=== PATIENT | male | born 1950 | race Caucasian/White ===

== ENCOUNTER → 2020-10-06 12:16 | Outpatient (CLI) | payer MEDICARE, BC, SELFPAY ==
--- NOTE | ~2020-10-06 | XR_ITS ---
XR elbow RT min 3V DATE: 10/06/2020 12:43 INDICATION: Right elbow pain TECHNIQUE: 5 views COMPARISON: None FINDINGS: Small dorsal olecranon process spur. Mild spurring of the coronoid process of the proximal ulna. No fracture or dislocation, periosteal reaction or bone destruction. No apparent joint effusion. IMPRESSION: Mild dorsal olecranon process spur Reviewed, dictated and finalized at location B.
== END ==
PROVIDERS: PCP Family Medicine; Visit Provider Nurse Practitioner
DX: M25.521 Pain in right elbow (principal); M77.8 Other enthesopathies, not elsewhere classified
CPT/HCPCS: 73080

== ENCOUNTER 2021-06-13 00:23 | Day surgery (SDC) | payer MEDICARE, BC, SELFPAY ==
[2021-06-04 14:04] VITALS: BMI 36.0
[2021-06-13 06:27] VITALS: BP 138/58; PULSE 53; RESP 20; TEMP 36.6; O2SAT 99
[2021-06-13] MEDS: LACTATED RINGERS 1,000 ML 150 ML IV CONT (06:41)
--- NOTE | 2021-06-13 06:45 | WPDANESEPPF ---
Anes - Initial Pre Proc Eval Procedure: Operation Date: 06/13/21 07:30 Proposed Procedures p Screening Colonoscopy - Dru Peterson MD Date/Time: 06/13/21 06:45 Surgeon: Dru Peterson MD Pre Op Diagnosis: neoplasm screening Patient Data Age: 70 Gender: M Height: 1.83 m Weight: 120 kg Last Vital Signs Temp 36.6 C 06/13/21 06:27 Pulse 53 L 06/13/21 06:27 Resp 20 06/13/21 06:27 BP 138/58 L 06/13/21 06:27 Pulse Ox 99 06/13/21 06:27 Allergies Allergy/AdvReac Type Severity Reaction Status Date / Time Penicillins Allergy Intermediate unknown Verified 06/13/21 06:26 clindamycin Allergy Unknown RASH AND Verified 06/13/21 06:26 ITCHING WARFARIN SODIUM Allergy Unknown COUMADIN Uncoded 06/13/21 06:26 INDUCED NECROSIS Home Medications Medication Instructions Recorded Confirmed Type acetaminophen 500 mg capsule 500 mg PO Q6H PRN 11/01/20 06/04/21 History amlodipine 5 mg tablet 5 mg PO DAILY 11/01/20 06/04/21 History aspirin 81 mg tablet,delayed 81 mg PO DAILY 11/01/20 06/04/21 History release atorvastatin 20 mg tablet 30 mg PO DAILY tablet 11/01/20 06/04/21 History blood ketone glucose monitor 11/01/20 06/04/21 History cholecalciferol (vitamin D3) 50 100 mcg PO DAILY 11/01/20 06/04/21 History mcg (2,000 unit) capsule folic acid 400 mcg tablet 0.4 mg PO DAILY 11/01/20 06/04/21 History furosemide 40 mg tablet 40 mg PO QAM 11/01/20 06/04/21 History hydralazine 100 mg tablet 100 mg PO BID 11/01/20 06/04/21 History loperamide 2 mg capsule 2 mg PO Q6H PRN 11/01/20 06/04/21 History multivitamin 1 tablet PO DAILY 11/01/20 06/04/21 History ferrous sulfate 325 mg (65 mg 325 mg PO DAILY tablet 05/03/21 06/04/21 History iron) tablet,delayed release nebivolol 20 mg tablet 20 mg PO DAILY 05/03/21 06/04/21 History Patient hx anesthesia problems: none Family hx anesthesia problems: none Results Review: All pre-operative results and documents have been reviewed as part of the pre-operative evaluation. [facility] Past Medical History Medical History Amputation toe Left middle toe 2013 Cholecystectomy planned 1998 Diabetes History of DVT (deep vein thrombosis) Hypertension Inflammation of right elbow Inflammatory monoarthritis of right elbow Kidney disease Vision changes Cataract 2012 Surgical History Surgical History History of amputation Right below knee 05/10/2010 Family History Family History Father Heart disease Mother Liver cancer Hypertension Sibling Brain cancer Hypertension Grandparent Cancer Other Diabetes mellitus Social History Social History Smoking status: Never smoker Alcohol intake: never Substance use: never Substance use type: does not use Living arrangements: alone Gender identity (if verbalized by the patient): Male Spiritual care concerns: No Anes - Eval Final PreProcedure Day of Procedure 06/13/21 06:45 Patient weight: obese Heart: regular rate and rhythm Lungs: clear to auscultation Airway: Mallampati scale class II Neurological: alert and oriented Last oral intake: >/= 8 hours ASA classification: III Emergent: no Anesthetic plan: proceed Anesthesia type and monitoring: general GIVS and standard monitoring Results Review: All pre-operative results and documents have been reviewed as part of the pre-operative evaluation. Informed Consent: The patient's anesthetic plan and its attendant risks and benefits were discussed with the patient/family/POA. Questions were solicited and answers provided to the satisfaction of the patient/family/POA.
--- NOTE | 2021-06-13 07:19 | PM.HPGS ---
History of Present Illness History of Present Illness Consent: Risks, benefits, and alternatives have been discussed and questions answered. Patient agrees to proceed with procedure. Chief complaint: neoplasm screening Narrative: Amish Richter is a 70 year old male here for first screening colonoscopy Review of Systems Constitutional: Constitutional: Denies headache(s) and Denies weakness Eyes: Eyes: Denies blurry vision ENT: Reports Normal hearing present, Denies headache(s) and Denies neck pain Cardiovascular: Cardiovascular: Denies chest pain and Denies dyspnea Respiratory: Respiratory: Denies dyspnea Gastrointestinal: Gastrointestinal: Reports no additional gastrointestinal complaints Genitourinary: Genitourinary: Denies dysuria Musculoskeletal: Musculoskeletal: Denies neck pain Integumentary/Breasts: Skin/Breast: Denies dry skin Neurologic: Reports Normal hearing present, Denies headache(s) and Denies weakness Psychiatric: Psychiatric: Denies anxiety Endocrine: Endocrine: Denies change in body appearance Hematologic/Lymphatic: Hematologic/Lymphatic: Denies easy bleeding Allergic/Immunologic: Allergic/Immunologic: Denies urticaria PMF Past Medical History Medical History Amputation toe Left middle toe 2014 Cholecystectomy planned 1998 Diabetes History of DVT (deep vein thrombosis) Hypertension Inflammation of right elbow Inflammatory monoarthritis of right elbow Kidney disease Vision changes Cataract 2012 Surgical History Surgical History History of amputation Right below knee 05/10/2010 Family History Family History Father Heart disease Mother Liver cancer Hypertension Sibling Brain cancer Hypertension Grandparent Cancer Other Diabetes mellitus Social History Social History Smoking status: Never smoker Alcohol intake: never Substance use: never Substance use type: does not use Living arrangements: alone Gender identity (if verbalized by the patient): Male Spiritual care concerns: No Meds Home Medications and Allergies Home Medications Medication Instructions Recorded Confirmed Type acetaminophen 500 mg capsule 500 mg PO Q6H PRN 11/01/20 06/04/21 History amlodipine 5 mg tablet 5 mg PO DAILY 11/01/20 06/04/21 History aspirin 81 mg tablet,delayed 81 mg PO DAILY 11/01/20 06/04/21 History release atorvastatin 20 mg tablet 30 mg PO DAILY tablet 11/01/20 06/04/21 History blood ketone glucose monitor 11/01/20 06/04/21 History cholecalciferol (vitamin D3) 50 100 mcg PO DAILY 11/01/20 06/04/21 History mcg (2,000 unit) capsule folic acid 400 mcg tablet 0.4 mg PO DAILY 11/01/20 06/04/21 History furosemide 40 mg tablet 40 mg PO QAM 11/01/20 06/04/21 History hydralazine 100 mg tablet 100 mg PO BID 11/01/20 06/04/21 History loperamide 2 mg capsule 2 mg PO Q6H PRN 11/01/20 06/04/21 History multivitamin 1 tablet PO DAILY 11/01/20 06/04/21 History ferrous sulfate 325 mg (65 mg 325 mg PO DAILY tablet 05/03/21 06/04/21 History iron) tablet,delayed release nebivolol 20 mg tablet 20 mg PO DAILY 05/03/21 06/04/21 History Allergies Allergy/AdvReac Type Severity Reaction Status Date / Time Penicillins Allergy Intermediate unknown Verified 06/13/21 06:26 clindamycin Allergy Unknown RASH AND Verified 06/13/21 06:26 ITCHING WARFARIN SODIUM Allergy Unknown COUMADIN Uncoded 06/13/21 06:26 INDUCED NECROSIS Vital Signs Vital Signs - 24 hr 06/13/21 06:27 Temperature 98 F Pulse Rate 53 L Respiratory Rate 20 Blood Pressure 138/58 L Pulse Oximetry 99 Exam Const: General: comfortable and no acute distress HENMT: General nose exam: Normal nares present Eyes: General: appearance normal, both eyes and all relat
[2021-06-13 07:39] VITALS: BP 96/50; PULSE 81; RESP 16; O2SAT 96
[2021-06-13 07:49] VITALS: BP 123/74; PULSE 80; RESP 17; O2SAT 97
[2021-06-13 07:59] VITALS: BP 134/69; PULSE 50; RESP 13; O2SAT 95
== END 2021-06-13 08:25 | disposition home or self-care (01) ==
PROVIDERS: PCP Internal Medicine; Visit Provider Internal Medicine Gastroenterology
PROC: 0DJD8ZZ Inspection of Lower Intestinal Tract, Via Natural or Artificial Opening Endoscopic (ICD-10-PCS; CPT 45378; principal; 2021-06-13 07:30)
DX: Z12.11 Encounter for screening for malignant neoplasm of colon (principal); K63.5 Polyp of colon; K64.8 Other hemorrhoids; I10 Essential (primary) hypertension; E11.9 Type 2 diabetes mellitus without complications; Z86.718 Personal history of other venous thrombosis and embolism; Z79.82 Long term (current) use of aspirin; Z89.511 Acquired absence of right leg below knee; E66.9 Obesity, unspecified; Z68.35 Body mass index [BMI] 35.0-35.9, adult
CPT/HCPCS: 45385; 88305; J2704; J7120

== ENCOUNTER 2023-01-14 10:47 | Emergency (ER) | payer MEDICARE, BC, SELFPAY ==
--- NOTE | ~2023-01-14 | XR_ITS ---
Right elbow Technique: AP, oblique, and lateral views were obtained. Clinical History: Pain Findings: There is probable mild elevation anterior fat pad, suggestive a small elbow joint effusion. No definite fracture delineated on this exam. Soft tissues are otherwise unremarkable. Impression: Probable small joint effusion, which is suspicious for occult radial head fracture. Reviewed, dictated and finalized at [facility]. Impression: Probable small joint effusion, which is suspicious for occult radial head fract ure.
[2023-01-14 10:56] VITALS: BP 138/90; PULSE 87; RESP 15; TEMP 36.9; O2SAT 99
--- NOTE | 2023-01-14 11:11 | ED.EXTPRO ---
HPI - Extremity Problem General Chief complaint: Extremity Problem,Nontraumatic Stated complaint: Elbow pain Time Seen by Provider: 01/14/23 11:05 Source: patient, RN notes reviewed and old records reviewed Mode of arrival: ambulatory Limitations: no limitations History of Present Illness HPI Narrative: 72-year-old male presents to [facility] with complaints of right elbow pain for the past 2 weeks mainly to the lateral aspect of his right elbow with some warmth to area. Patient reports that he has had pain to his right elbow previously and saw Dr Garcia in the past and states it did get better but has had increased pain lately. Patient has pain to to lateral epicondyle and some warmth noted but no acute redness. Patient is able to supinate and pronate his right arm but with some discomfort.Patient denies any injury to his right elbow, does walk with a walker had right BKA and wears a prosthesis. Patient can not take any anti-inflammatories due to kidney disease. MD Complaint: extremity pain and other (warmth to right lateral elbow) Onset (ago): week(s) (2weeks increased symptoms) Severity scale (1-10): 3 Related Data Home Medications Medication Instructions Recorded Confirmed aspirin 81 mg tablet,delayed 81 mg PO DAILY 11/01/20 01/14/23 release (Adult Aspirin Regimen) blood ketone glucose monitor 11/01/20 12/04/22 Allergies Allergy/AdvReac Type Severity Reaction Status Date / Time Penicillins Allergy Intermediate unknown Verified 01/14/23 11:07 clindamycin Allergy Unknown RASH AND Verified 01/14/23 11:07 ITCHING WARFARIN SODIUM Allergy Unknown COUMADIN Uncoded 01/14/23 11:07 INDUCED NECROSIS Review of Systems Review of Systems: CONSTITUTIONAL: Denies fever, chills, or sweats. EYES: Denies visual changes, redness, or discharge. ENT: Denies rhinorrhea, congestion, sore throat, or otalgia. CARDIOVASCULAR: Denies chest pain, palpitations, or edema. RESPIRATORY: Denies cough or dyspnea. GASTROINTESTINAL: Denies abdominal pain, nausea, vomiting, or diarrhea. GENITOURINARY: Denies dysuria or hematuria. SKIN: Denies rash or itching. MUSCULOSKELETAL: Denies back pain,positive for right elbow joint pain with some warmness to area, or myalgia. NEUROLOGIC: Denies headache, numbness, or weakness. PSYCHIATRIC: Denies anxiety or depression. All systems reviewed & are unremarkable except as noted in HPI and below PMFSH Past Medical History Medical History Amputation toe Left middle toe 2013 Cholecystectomy planned 1998 Diabetes History of DVT (deep vein thrombosis) Hypertension Inflammation of right elbow Inflammatory monoarthritis of right elbow Kidney disease Vision changes Cataract 2012 Surgical History Surgical History History of amputation Right below knee 05/10/2010 Family History Family History Father Heart disease Mother Liver cancer Hypertension Sibling Brain cancer Hypertension Grandparent Cancer Other Diabetes mellitus Social History Social History Social History: Caffeine-hot tea Smoking status: Never smoker Alcohol intake: never Substance use: never Substance use type: does not use Lack of Transportation: YES Lack of Food: Never True Current Housing: I Have Housing Concerned About Future Housing: No Difficulty Paying Gas/Electric Bills: No Difficulty Paying for Meds: No Currently Unemployed: No Education: Bachelor's Degree Difficulty w/ Childcare or Family Care: No Living arrangements: alone Gender identity (if verbalized by the patient): Male Spiritual care concerns: No Comments At time of signature, agree with nursing past medical, surgical, social and family history. There is no relevant family history pe
--- NOTE | 2023-01-14 12:06 | PC.NURSE ---
1150- [employer] talking to Dr Garcia, - states that since nothing is emergent they didnt have availability for this patient.
== END 2023-01-14 12:21 | disposition home or self-care (01) ==
PROVIDERS: Emergency Provider Registered Nurse; PCP Internal Medicine
DX: M25.421 Effusion, right elbow (principal); E11.9 Type 2 diabetes mellitus without complications; I10 Essential (primary) hypertension; Z89.511 Acquired absence of right leg below knee; Z86.718 Personal history of other venous thrombosis and embolism; Z89.422 Acquired absence of other left toe(s); Z79.82 Long term (current) use of aspirin
CPT/HCPCS: 73080; 99213; A4565; G0463

== ENCOUNTER 2023-02-05 13:30 | Outpatient (RCR) | payer MEDICARE, BC, SELFPAY ==
--- NOTE | 2023-01-29 11:52 | OTOPEVAL1 ---
Assessment and note entered by Lior Quiñones, DESIRE/Alexa, CHT Evaluation Information Diagnosis OA right elbow Subjective Information Patient is right handed. He reports pain and stiffness in the right elbow. He did receive an injection to the elbow ~2 weeks ago and completed a round of Prednisone. Since these treatments his pain is significantly better and he has been able to use the right UE to wash his hair. Previously it was too painful to bend to reach his face/hair for grooming tasks. He is fearful that the pain will come back now that he's done with the medication. Reported Pain Level Pain Score 0: Self Report Assessment OT Clinical Summary Patient referred to outpatient OT with dx of right elbow OA. He presents today with no pain following cortisone and prednisone tx. Residual stiffness and weakness. Skilled OT indicated for HEP instruction and progression as well as joint protection education to facilitate optimal pain- free functioning of his right, dominant UE. Plan of Care Interventions Therapeutic Exercise,Manual Therapy,Therapeutic Activities,Hot Pack/Cold Pack OT Services Indicated Yes Treatment Frequency and 1x/week for 4 weeks Duration These treatments will address the objective and functional deficits as defined above. The patient will be advanced safely and appropriately in order for the patient to progress towards his/her prior level of function. Additional exercises will be introduced and as well as a comprehensive home exercise program upon discharge, if needed, ?to ensure carryover of functional gains achieved in the clinic. This treatment plan has been reviewed and agreement upon by the patient.
--- NOTE | 2023-01-29 11:57 | OPREHPOC ---
Outpatient Therapy Plan of Care This is a Multidisciplinary Plan of Care that may contain components documented by all disciplines (PT, OT, and ST.) OT Problem 1 OT Problem #1 Knowledge Deficit OT Goal 1 Goal 1. Patient to be independent with instructed materials. Target Visit 5 OT Problem 2 OT Problem #2 Impaired Strength OT Goal 1 Goal 1. Patient to be able to complete elbow/forearm strengthening in all planes with 2 lb. free weight x15 reps without pain. Target Visit 5
--- NOTE | 2023-02-19 09:15 | OTOPDC ---
Assessment and note entered by Lior Quiñones, OTR/Alexa, CHT Discharge Notification 02/19/23 OT Clinical Summary Patient called and cancelled OT appts stating he was doing well and ready to be discharged. He attended the initial evaluation and 1 follow up visit and was instructed in HEP. Discharging OT services at this time. Thank you for this referral.
== END 2023-02-19 11:40 | disposition home or self-care (01) ==
LOC: ANHOT 13:30
PROVIDERS: PCP Internal Medicine; Visit Provider Orthopaedic Surgery
DX: M19.021 Primary osteoarthritis, right elbow (principal); M25.521 Pain in right elbow
CPT/HCPCS: 97110; 97165

== ENCOUNTER 2024-01-20 11:07 | Inpatient (IN) | payer MEDICARE, BC, SELFPAY ==
[2024-01-20] VITALS (8 sets, daily range): BP systolic 104–139; BP diastolic 46–63; PULSE 55–68; RESP 16–19; TEMP 36.5–36.8; O2SAT 95–99; BMI 33.3; BMI 33.6
--- NOTE | ~2024-01-20 | CT_ITS ---
EXAMINATION: CT pelvis wo con, CT LE LT wo con DATE: 01/20/2024 18:15 (accession [id number]), 01/20/2024 18:16 (accession [id number]) INDICATION: Scrotal infection, lower extremity edema/erythema TECHNIQUE: Computed tomography (CT) of the pelvis and left lower extremity was performed without intr avenous contrast. Automated exposure control and iterative reconstruction technique were employed. Th e dose-length product was 1356.06 (accession [id number]), 2078.27 (accession [id number]) mGy- cm. COMPARISON: Ultrasound scrotum, same date; Ultrasound left lower extremity venous Doppler, same date; CT abdomen pelvis 02/25/2012 FINDINGS: Atherosclerotic arterial calcifications. Normal urinary bladder. Mild prostatomegaly. Subcu taneous stranding over the suprapubic fat. Soft tissue edema involving the penis with marked edema of the scrotum. Moderate right and small left hydroceles. Degenerative changes in the lower lumbar spin e and bilateral hips. Degenerative changes in the knee and ankle. Status post third toe amputation. D iffuse subcutaneous stranding and edema of the left lower extremity, most pronounced over the dorsum of the foot and the lateral thigh and lower leg. No definite focal fluid collection, although this de termination is limited without contrast. Moderate volume knee joint effusion. IMPRESSION: Marked scrotal edema. Diffuse left lower extremity subcutaneous stranding and fluid, most pronounced over the lateral thigh, lateral lower leg, and dorsum of the foot, may represent edema or cellulitis. Reviewed, dictated and finalized at location K. IMPRESSION: Marked scrotal edema. Diffuse left lower extremity subcutaneous stranding and f luid, most pronounced over the lateral thigh, lateral lower leg, and dorsum of the foot, may represent edema or cellulitis.
--- NOTE | ~2024-01-20 | US_ITS ---
EXAMINATION: US venous doppler [facility] DATE: 01/20/2024 17:16 INDICATION: Left lower limb pain and swelling TECHNIQUE: Grayscale ultrasound images without and with compression and Doppler ultrasound images of the left lower extremity veins were obtained. COMPARISON: None. FINDINGS: The visualized portions of left common femoral vein, profunda (deep) femoral vein, femoral vein, popl iteal vein, peroneal veins, posterior tibial veins, gastrocnemius vein and greater saphenous vein out flow are patent. IMPRESSION: 1. No deep venous thrombosis in the left lower limb. Reviewed, dictated and finalized at location A.
--- NOTE | ~2024-01-20 | CT_ITS ---
EXAMINATION: CT LE LT wo con DATE: 01/24/2024 18:10 INDICATION: Left lower limb cellulitis with edema and pain. Assess for abscess. TECHNIQUE: High resolution computed tomography (CT) of the left lower limb from the mid thigh through the foot was performed without intravenous contrast. Additional sagittal and coronal reconstructions were performed. Automated exposure control and iterative reconstruction technique were employed. The dose-length product was 1535.46 mGy-cm. COMPARISON: 01/20/2024 FINDINGS: Again seen is subcutaneous stranding beginning at the posterior and lateral aspect of the distal thig h and extending distally becoming more dense along the lateral aspect of the left calf over the dorsu m of the foot. No evident soft tissue gas or abscess. Unchanged moderate-sized left knee joint effusi on. There is diffuse fatty muscular atrophy, mild at the left thigh and visualized portion of the rig ht thigh and of moderate severity at the left calf. This only noted right [id number] amputation. Mild polyarticular osteoarthritis at the left foot and ankle. No erosions to suggest inflammatory art hritis or osteomyelitis. Left peroneus longus and brevis tendons which suggests possibility of a mani talline deposition disease such as gout. Moderate-sized Achilles and plantar calcaneal spurs. IMPRESSION: 1. No significant interval change in soft tissue swelling with subcutaneous stranding most prominent along the lateral distal left thigh, calf and extending over the dorsum of the foot. No evident absce ss or osteomyelitis. 2. Nonspecific moderate-sized left knee joint effusion. 3. Dystrophic calcifications along the left peroneus longus and brevis tendons suggesting possible cr ystalline deposition diseases such as gout. Reviewed, dictated and finalized at location A. 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 No significant interval change in soft tissue swelling with subcutaneous str anding most prominent along the lateral distal left thigh, calf and extending o alejandro the dorsum of the foot. No evident abscess or osteomyelitis. 2. Nonspecific moderate-sized left knee joint effusion. 3. Dystrophic calcifications along the left peroneus longus and brevis tendons suggesting possible crystalline deposition diseases such as gout.
--- NOTE | ~2024-01-20 | US_ITS ---
EXAMINATION: US arterial ankle brachial ind DATE: 01/24/2024 18:24 INDICATION: Lower limb pain and swelling TECHNIQUE: Segmental pressures and plethysmographic and Doppler waveforms of the brachial and lower e xtremity arteries were obtained. COMPARISON: None. FINDINGS: Right and left brachial artery pressures of 146 mm Hg and 139 mm Hg, respectively, are concordant (no rmal difference <= 30 mmHg). The left ankle-brachial index (KEISHA) is 1.28 (normal >= 0.9-1.0). The right great toe-brachial index ( TBI) is 0.90 (normal >= 0.65). Arterial Doppler waveforms are biphasic with brisk systolic upstrokes at both right posterior tibial and dorsalis pedis arteries. The patient is status post right cnaiz-swi-[id number] amputation. IMPRESSION: 1. No significant arterial occlusive disease to the left lower limb with normal left KEISHA and TBI. Reviewed, dictated and finalized at location A. [employer]STATE LEASING [employer]
--- NOTE | ~2024-01-20 | XR_ITS ---
EXAMINATION: XR ankle LT min 3V DATE: 01/20/2024 14:24 INDICATION: Left lower limb swelling. TECHNIQUE: 4 views of left ankle were obtained. COMPARISON: None. FINDINGS: Alignment is normal. No fracture. The ankle joint space is normal. There is mild midfoot os teoarthritis. There is ankle soft tissue swelling. IMPRESSION: 1. Mild midfoot osteoarthritis. Reviewed, dictated and finalized at location B.
--- NOTE | ~2024-01-20 | US_ITS ---
EXAMINATION: US scrotum doppler DATE: 01/20/2024 17:16 INDICATION: Scrotal swelling TECHNIQUE: Testicular sonogram utilizing grayscale and Doppler COMPARISON: None. FINDINGS: The right testis measures 4.0 x 3.1 x 3.2 cm. The left testis measures 3.4 x 2.9 x 2.4 cm. Symmetric normal grayscale appearance to both testes. There is normal vascular flow to both testes. The right e pididymis is normal with normal vascular flow. The left epididymis is normal with normal vascular macey w. Minimally left and moderate-sized right hydroceles. No varicocele. There is prominent diffuse scro elias edema IMPRESSION: 1. Diffuse scrotal edema and moderate-sized right and minimal left hydroceles. Normal testes and epi didymides. Reviewed, dictated and finalized at location A. IMPRESSION: 1. Diffuse scrotal edema and moderate-sized right and minimal left hydroceles. Normal testes and epididymides.
--- NOTE | ~2024-01-20 | XR_ITS ---
EXAMINATION: XR foot LT min 3V DATE: 01/20/2024 14:24 INDICATION: Left lower limb swelling. TECHNIQUE: 3 views of left foot were obtained. COMPARISON: None. FINDINGS: There is amputation a left third metatarsophalangeal joint. No fracture. There is mild oste oarthritis of first metatarsophalangeal joint and some of the midfoot joints. There are enthesophytes at the posterior and plantar aspects of calcaneal tuberosity. There is soft tissue swelling of the f oot. IMPRESSION: 1. Mild polyarticular osteoarthritis. Reviewed, dictated and finalized at location B.
--- NOTE | 2024-01-20 13:51 | ECG_ITS ---
Test Date: 2024-01-20 14:08:22 Measurements Intervals [place] Rate: 64 P: 115 LA: 206 QRS: -58 QRSD: 166 T: 104 QT: 449 QTc: 464 Interpretive Statements SINUS RHYTHM MARKED LEFT AXIS DEVIATION [QRS AXIS < -30] LEFT BUNDLE BRANCH BLOCK [120+ ms QRS DURATION, 80+ ms Q/S IN V1/V2, 85+ ms R IN I/aVL/V5/V6] No previous ECG available for comparison Electronically Signed On 01-20-2024 14:26:17 CDT by Brea Diop M.D.
--- NOTE | 2024-01-20 13:54 | ED.GENADULT ---
HPI - General Adult General Chief complaint: Recheck/Abnormal Lab/Rx <Arlette Kwan APRN - Last Filed: 01/20/24 13:56> Stated complaint: r/o dvt, scrotal swelling <Arlette Kwan APRN - Last Filed: 01/20/24 13:56> Time Seen by Provider: 01/20/24 13:50 <Arlette Kwan APRN - Last Filed: 01/20/24 13:56> Focused HPI: Patient is a 73-year-old male who presents to the ER with 3-4 days of left lower extremity swelling and pain, along with scrotal swelling for 3 days. 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 He reports his LLE pain increases with walking and is warm to the touch. Pt reports he has minimal pain, but large amount of swelling to his scrotum for 3 days. He has no concern for STDs And denies other urinary symptoms. GENERAL: Well-appearing, well-nourished, and in no acute distress. HEAD: Normocephalic, atraumatic. CHEST: Clear to auscultation. ?No respiratory distress. HEART: Regular rate and rhythm.? NEURO: ?Alert and oriented x3. Patient screened in triage and initial orders placed.? ?Additional care and disposition to be based upon?diagnostic testing and treatment. <Arlette Kwan APRN - Last Filed: 01/20/24 13:56> Related Data Home medications: Home Medications Medication Instructions Recorded Confirmed aspirin 81 mg tablet,delayed 81 mg PO DAILY 11/01/20 01/20/24 release (Adult Aspirin Regimen) blood ketone glucose monitor 11/01/20 01/20/24 cholecalciferol (vitamin D3) 50 50 mcg PO DAILY 01/15/23 01/20/24 mcg (2,000 unit) capsule ferrous sulfate 325 mg (65 mg 325 mg PO BID 02/12/23 01/20/24 iron) tablet [id number] 300 mcg-K 60 1 tablet PO DAILY 02/12/23 01/20/24 mcg-lycop 600 mcg-lutein 300 mcg tablet (Centrum Silver Men) amlodipine 5 mg tablet 5 mg PO DAILY 01/20/24 01/20/24 hydralazine 100 mg tablet 100 mg PO DAILY 01/20/24 01/20/24 hydrochlorothiazide 25 mg tablet 25 mg PO DAILY 01/20/24 01/20/24 <Arlette Kwan APRN - Last Filed: 01/20/24 13:56> Allergies/adverse reactions: Allergies Allergy/AdvReac Type Severity Reaction Status Date / Time Penicillins Allergy Intermediate unknown Verified 01/20/24 21:16 clindamycin Allergy Unknown RASH AND Verified 01/20/24 21:16 ITCHING warfarin [From Coumadin] Allergy Unknown Unknown Verified 01/20/24 21:16 <Arlette Kwan APRN - Last Filed: 01/20/24 13:56> Review of Systems Review of Systems: CONSTITUTIONAL: Denies fever CARDIOVASCULAR: Denies chest pain RESPIRATORY: Denies dyspnea. GASTROINTESTINAL: Reports diarrhea. Denies abdominal pain, nausea, vomiting GENITOURINARY: Denies dysuria or hematuria. SKIN: Reports redness and swelling <Kelsy Munguia PA-C - Last Filed: 01/20/24 20:50> All systems reviewed & are unremarkable except as noted in HPI and below <Kelsy Munguia PA-C - Last Filed: 01/20/24 20:50> [facility] Past Medical History Medical History: Medical History Amputation toe Left middle toe 2013 Cholecystectomy planned 1998 Diabetes History of DVT (deep vein thrombosis) Hypertension Inflammation of right elbow Inflammatory monoarthritis of right elbow Kidney disease Vision changes Cataract 2012 <Arlette Kwan APRN - Last Filed: 01/20/24 13:56> Surgical History Surgical History: Surgical History History of amputation Right below knee 05/10/2010 History of cholecystectomy <Arlette Kwan APRN - Last Filed: 01/20/24 13:56> Family History Family History: Family History Father Heart disease Mother Liver cancer Hypertension Sibling Brain cancer Hypertension Grandparent Cancer Other Diabetes mellitus <Arlette Kwan APRN - Last Filed: 01/20/24 13:56> Social History Social History: Social History Social History: Caffeine-hot tea Smoking status: Never smoker Alcohol intake: never Substance use: never Substance use type: does not use Do You Feel Safe in your Home?: Yes Lack of Transportation: No Lack of Food: Never True Current Housing: I Have Housing Concerned About Future Housing: No Difficulty Paying Gas/Electric Bills: No Difficulty Paying for Meds: No Currently Unemployed: No Education: Bachelor's Degree Difficulty w/ Childcare or Family Care: No Living arrangements: alone Occupation/Education: retired Gender identity (if verbalized by the patient): Male Spiritual care concerns: No <Arlette Kwan APRN - Last Filed: 01/20/24 13:56> Exam Narrative: GENERAL: Ill-appearing, well-nourished, and in no acute distress. HEAD: Normocephalic, atraumatic. EYES: EOMI. ENT: Nares clear, no rhinorrhea or epistaxis. Mucous membranes moist. Oropharynx without tonsillar hypertrophy exudate or other lesions. NECK: Supple. No JVD CHEST: Clear to auscultation. No respiratory distress. No wheezes rales or rhonchi HEART: Regular rate and rhythm. No murmur heard. Normal peripheral pulses. ABDOMEN: Soft, nontender, nondistended, normal active bowel sounds. EXTREMITIES: Normal range of motion. Edema about the left lower extremity with overlying redness SKIN: Warm, dry, no rash. NEURO: No focal deficits. Alert and oriented x3. PSYCH: Normal mood and affect MALE GENITAL: Redness and swelling of the scrotum, no other abnormal skin discoloration <Kelsy Munguia PA-C - Last Filed: 01/20/24 20:50> Course Course Emergency Course: Patient updated on his workup and recommendation for admission <Kelsy Munguia PA-C - Last Filed: 01/20/24 20:50> TRUCK DRIVER HEAVY/PA Physician Supervision For this patient encounter, I reviewed the TRUCK DRIVER HEAVY or PA documentation, treatment plan, and medical decision making and/or I had [id number] time with this patient. I performed all aspects of the MDM as documented. <Angelina Rizvi MD - Last Filed: 01/20/24 21:52> Consultations Consultation #1: Spoke with hospitalist about patient and workup who accepts admission <Kelsy Munguia PA-C - Last Filed: 01/20/24 20:50> Date: 01/20/24 <Kelsy Munguia PA-C - Last Filed: 01/20/24 20:50> Vital Signs Vital signs: Vital Signs Temperature 97.7 F 01/20/24 11:35 Pulse Rate 68 01/20/24 11:35 Respiratory Rate 16 01/20/24 11:35 Blood Pressure 120/63 01/20/24 11:35 Pulse Oximetry 99 01/20/24 11:35 Oxygen Delivery Room Air 01/20/24 11:35 Temperature 98.3 F 01/20/24 20:40 Pulse Rate 62 01/20/24 20:40 Respiratory Rate 18 01/20/24 20:40 Blood Pressure 139/54 L 01/20/24 20:40 Pulse Oximetry 99 01/20/24 20:40 Oxygen Delivery Room Air 01/20/24 11:35 <Arlette Kwan, BODY DESIGN CHECKER - Last Filed: 01/20/24 13:56> Vital Signs Temperature 97.7 F 01/20/24 11:35 Pulse Rate 68 01/20/24 11:35 Respiratory Rate 16 01/20/24 11:35 Blood Pressure 120/63 01/20/24 11:35 Pulse Oximetry 99 01/20/24 11:35 Oxygen Delivery Room Air 01/20/24 11:35 Temperature 98.3 F 01/20/24 20:40 Pulse Rate 62 01/20/24 20:40 Respiratory Rate 18 01/20/24 20:40 Blood Pressure 139/54 L 01/20/24 20:40 Pulse Oximetry 99 01/20/24 20:40 Oxygen Delivery Room Air 01/20/24 11:35 <Kelsy Munguia PA-C - Last Filed: 01/20/24 20:50> Vital Signs Temperature 97.7 F 01/20/24 11:35 Pulse Rate 68 01/20/24 11:35 Respiratory Rate 16 01/20/24 11:35 Blood Pressure 120/63 01/20/24 11:35 Pulse Oximetry 99 01/20/24 11:35 Oxygen Delivery Room Air 01/20/24 11:35 Temperature 98.3 F 01/20/24 20:40 Pulse Rate 62 01/20/24 20:40 Respiratory Rate 18 01/20/24 20:40 Blood Pressure 139/54 L 01/20/24 20:40 Pulse Oximetry 99 01/20/24 20:40 Oxygen Delivery Room Air 01/20/24 11:35 <Angelina Rizvi MD - Last Filed: 01/20/24 21:52> Medical Decision Making MDM Narrative Medical decision making narrative: Patient presents to the emergency department for swelling of the left lower extremity as well as the scrotum. He is afebrile and nontoxic appearing. His vitals are stable. CBC with leukocytosis to 24.1. Hemoglobin is 10.9. Metabolic panel with evidence of acute on chronic kidney injury. Baseline troponin elevated at 0.046, patient does not have any active chest pain or shortness of breath, likely due to acute infectious illness. Blood cultures drawn patient started on IV antibiotics. CT lower extremity shows findings of cellulitis. Left lower extremity venous Doppler without evidence of DVT. Scrotal ultrasound shows diffuse scrotal edema and moderate size right and minimal left hydroceles. Patient updated on his workup and recommendation for admission. Spoke with hospitalist about patient and workup who accepts admission <Kelsy Munguia PA-C - Last Filed: 01/20/24 20:50> Differential Diagnosis Differential Diagnosis: Cellulitis, abscess, sepsis, yeast infection <Kelsy Munguia PA-C - Last Filed: 01/20/24 20:50> Medical Records Medical records reviewed: Yes I reviewed the external patient's medical records. <Angelina Rizvi MD - Last Filed: 01/20/24 21:52> Vital Signs Vital Signs: Vital Signs Temperature 97.7 F 01/20/24 11:35 Pulse Rate 68 01/20/24 11:35 Respiratory Rate 16 01/20/24 11:35 Blood Pressure 120/63 01/20/24 11:35 Pulse Oximetry 99 01/20/24 11:35 Oxygen Delivery Room Air 01/20/24 11:35 Temperature 98.3 F 01/20/24 20:40 Pulse Rate 62 01/20/24 20:40 Respiratory Rate 18 01/20/24 20:40 Blood Pressure 139/54 L 01/20/24 20:40 Pulse Oximetry 99 01/20/24 20:40 Oxygen Delivery Room Air 01/20/24 11:35 <Arlette Kwan APRN - Last Filed: 01/20/24 13:56> Vital Signs Temperature 97.7 F 01/20/24 11:35 Pulse Rate 68 01/20/24 11:35 Respiratory Rate 16 01/20/24 11:35 Blood Pressure 120/63 01/20/24 11:35 Pulse Oximetry 99 01/20/24 11:35 Oxygen Delivery Room Air 01/20/24 11:35 Temperature 98.3 F 01/20/24 20:40 Pulse Rate 62 01/20/24 20:40 Respiratory Rate 18 01/20/24 20:40 Blood Pressure 139/54 L 01/20/24 20:40 Pulse Oximetry 99 01/20/24 20:40 Oxygen Delivery Room Air 01/20/24 11:35 <Kelsy Munguia PA-C - Last Filed: 01/20/24 20:50> Vital Signs Temperature 97.7 F 01/20/24 11:35 Pulse Rate 68 01/20/24 11:35 Respiratory Rate 16 01/20/24 11:35 Blood Pressure 120/63 01/20/24 11:35 Pulse Oximetry 99 01/20/24 11:35 Oxygen Delivery Room Air 01/20/24 11:35 Temperature 98.3 F 01/20/24 20:40 Pulse Rate 62 01/20/24 20:40 Respiratory Rate 18 01/20/24 20:40 Blood Pressure 139/54 L 01/20/24 20:40 Pulse Oximetry 99 01/20/24 20:40 Oxygen Delivery Room Air 01/20/24 11:35 <Angelina Rizvi MD - Last Filed: 01/20/24 21:52> Lab Data Lab results reviewed: Yes I reviewed the patient's lab results. <Kelsy Munguia PA-C - Last Filed: 01/20/24 20:50> Result diagrams: 01/20/24 14:04 01/20/24 14:04 <Arlette Kwan APRN - Last Filed: 01/20/24 13:56> Labs: Lab Results 01/20/24 01/20/24 Range/Units 14:04 17:11 WBC 24.1 H (4.5-10.0) K/mm3 RBC 3.78 L (4.6-6.20) M/mm3 Hgb 10.9 L (14.0-18.0) g/dL Hct 34.2 L (42.0-52.0) % MCV 90.5 (80-100) fl MCH 28.8 (26-34) pg MCHC 31.9 L (32-36) g/dl RDW 14.1 (11.5-14.5) % Plt Count 280 (150-375) k/mm3 MPV 9.0 (7.4-10.4) fl Immature Gran % (Auto) 1.0 H (0-0.5) % Neut % (Auto) 90.3 H (45.5-73.1) % Lymph % (Auto) 2.6 L (18.3-44.2) % [place] % (Auto) 5.9 (2.6-8.5) % Eos % (Auto) 0.0 (0-4.4) % Baso % (Auto) 0.2 (0.2-1.2) % Lymph # (Auto) 0.63 L (0.9-3.2) K/mm3 [place] # (Auto) 1.4 H (0.1-0.6) K/mm3 Eos # (Auto) 0.0 (0-0.3) K/mm3 Baso # (Auto) 0.1 (0.0-0.1) K/mm3 Abs Immat Gran (auto) 0.25 H (0.00-0.031) K/mm3 Absolute Neuts (auto) 21.7 H (1.3-6.7) K/mm3 Absolute Nucleated RBC 0.000 (0.0-0.012) K/mm3 Nucleated RBC % 0.0 (0.0-0.2) % ESR 133 H (0-20) mm/hr PT 16.7 H (11.1-14.7) Seconds INR 1.3 APTT 62.2 H (22.3-36.8) Seconds Sodium 138 (137-145) mmol/L Potassium 3.3 L (3.4-5.0) mmol/L Chloride 101 (98-107) mmol/L Carbon Dioxide 21 L (22-30) mmol/L Anion Gap 16 H (4-12) mmol/L BUN 81 H (9-20) mg/dL Creatinine 3.40 H (0.7-1.3) mg/dL Estim Creat Clear Calc 24 ml/min Estimated GFR 18 L (59 - ) Glucose 142 H (65-110) mg/dL Hemoglobin A1c 6.8 H (<5.7) % Lactic Acid 1.5 (0.7-2.0) mmol/L Calcium 9.9 (8.4-10.2) mg/dL Magnesium 2.3 (1.6-2.3) mg/dL Total Bilirubin 0.5 (0.2-1.3) mg/dL AST 30 (17-59) U/L ALT 27 (6-50) U/L Alkaline Phosphatase 97 (38-126) U/L Troponin I 0.046 H* 0.043 H* (0.000-0.034) ng/mL C-Reactive Protein 32.6 H (<1.0) mg/dL Total Protein 8.0 (6.3-8.2) g/dL Albumin 4.2 (3.5-5.1) g/dL <Arlette Kwan, BODY DESIGN CHECKER - Last Filed: 01/20/24 13:56> Lab Results 01/20/24 01/20/24 Range/Units 14:04 17:11 WBC 24.1 H (4.5-10.0) K/mm3 RBC 3.78 L (4.6-6.20) M/mm3 Hgb 10.9 L (14.0-18.0) g/dL Hct 34.2 L (42.0-52.0) % MCV 90.5 (80-100) fl MCH 28.8 (26-34) pg MCHC 31.9 L (32-36) g/dl RDW 14.1 (11.5-14.5) % Plt Count 280 (150-375) k/mm3 MPV 9.0 (7.4-10.4) fl Immature Gran % (Auto) 1.0 H (0-0.5) % Neut % (Auto) 90.3 H (45.5-73.1) % Lymph % (Auto) 2.6 L (18.3-44.2) % [place] % (Auto) 5.9 (2.6-8.5) % Eos % (Auto) 0.0 (0-4.4) % Baso % (Auto) 0.2 (0.2-1.2) % Lymph # (Auto) 0.63 L (0.9-3.2) K/mm3 [place] # (Auto) 1.4 H (0.1-0.6) K/mm3 Eos # (Auto) 0.0 (0-0.3) K/mm3 Baso # (Auto) 0.1 (0.0-0.1) K/mm3 Abs Immat Gran (auto) 0.25 H (0.00-0.031) K/mm3 Absolute Neuts (auto) 21.7 H (1.3-6.7) K/mm3 Absolute Nucleated RBC 0.000 (0.0-0.012) K/mm3 Nucleated RBC % 0.0 (0.0-0.2) % ESR 133 H (0-20) mm/hr PT 16.7 H (11.1-14.7) Seconds INR 1.3 APTT 62.2 H (22.3-36.8) Seconds Sodium 138 (137-145) mmol/L Potassium 3.3 L (3.4-5.0) mmol/L Chloride 101 (98-107) mmol/L Carbon Dioxide 21 L (22-30) mmol/L Anion Gap 16 H (4-12) mmol/L BUN 81 H (9-20) mg/dL Creatinine 3.40 H (0.7-1.3) mg/dL Estim Creat Clear Calc 24 ml/min Estimated GFR 18 L (59 - ) Glucose 142 H (65-110) mg/dL Hemoglobin A1c 6.8 H (<5.7) % Lactic Acid 1.5 (0.7-2.0) mmol/L Calcium 9.9 (8.4-10.2) mg/dL Magnesium 2.3 (1.6-2.3) mg/dL Total Bilirubin 0.5 (0.2-1.3) mg/dL AST 30 (17-59) U/L ALT 27 (6-50) U/L Alkaline Phosphatase 97 (38-126) U/L Troponin I 0.046 H* 0.043 H* (0.000-0.034) ng/mL C-Reactive Protein 32.6 H (<1.0) mg/dL Total Protein 8.0 (6.3-8.2) g/dL Albumin 4.2 (3.5-5.1) g/dL <Kelsy Munguia PA-C - Last Filed: 01/20/24 20:50> Lab Results 01/20/24 01/20/24 Range/Units 14:04 17:11 WBC 24.1 H (4.5-10.0) K/mm3 RBC 3.78 L (4.6-6.20) M/mm3 Hgb 10.9 L (14.0-18.0) g/dL Hct 34.2 L (42.0-52.0) % MCV 90.5 (80-100) fl MCH 28.8 (26-34) pg MCHC 31.9 L (32-36) g/dl RDW 14.1 (11.5-14.5) % Plt Count 280 (150-375) k/mm3 MPV 9.0 (7.4-10.4) fl Immature Gran % (Auto) 1.0 H (0-0.5) % Neut % (Auto) 90.3 H (45.5-73.1) % Lymph % (Auto) 2.6 L (18.3-44.2) % [place] % (Auto) 5.9 (2.6-8.5) % Eos % (Auto) 0.0 (0-4.4) % Baso % (Auto) 0.2 (0.2-1.2) % Lymph # (Auto) 0.63 L (0.9-3.2) K/mm3 [place] # (Auto) 1.4 H (0.1-0.6) K/mm3 Eos # (Auto) 0.0 (0-0.3) K/mm3 Baso # (Auto) 0.1 (0.0-0.1) K/mm3 Abs Immat Gran (auto) 0.25 H (0.00-0.031) K/mm3 Absolute Neuts (auto) 21.7 H (1.3-6.7) K/mm3 Absolute Nucleated RBC 0.000 (0.0-0.012) K/mm3 Nucleated RBC % 0.0 (0.0-0.2) % ESR 133 H (0-20) mm/hr PT 16.7 H (11.1-14.7) Seconds INR 1.3 APTT 62.2 H (22.3-36.8) Seconds Sodium 138 (137-145) mmol/L Potassium 3.3 L (3.4-5.0) mmol/L Chloride 101 (98-107) mmol/L Carbon Dioxide 21 L (22-30) mmol/L Anion Gap 16 H (4-12) mmol/L BUN 81 H (9-20) mg/dL Creatinine 3.40 H (0.7-1.3) mg/dL Estim Creat Clear Calc 24 ml/min Estimated GFR 18 L (59 - ) Glucose 142 H (65-110) mg/dL Hemoglobin A1c 6.8 H (<5.7) % Lactic Acid 1.5 (0.7-2.0) mmol/L Calcium 9.9 (8.4-10.2) mg/dL Magnesium 2.3 (1.6-2.3) mg/dL Total Bilirubin 0.5 (0.2-1.3) mg/dL AST 30 (17-59) U/L ALT 27 (6-50) U/L Alkaline Phosphatase 97 (38-126) U/L Troponin I 0.046 H* 0.043 H* (0.000-0.034) ng/mL C-Reactive Protein 32.6 H (<1.0) mg/dL Total Protein 8.0 (6.3-8.2) g/dL Albumin 4.2 (3.5-5.1) g/dL <Angelina Rizvi MD - Last Filed: 01/20/24 21:52> Imaging Data Radiologist's impression: ITS Impressions Ankle X-Ray 01/20/24 14:29 IMPRESSION: 1. Mild midfoot osteoarthritis. Foot X-Ray 01/20/24 14:29 IMPRESSION: 1. Mild polyarticular osteoarthritis. Venous Doppler Study 01/20/24 17:19 IMPRESSION: 1. No deep venous thrombosis in the left lower limb. Scrotum Ultrasound 01/20/24 17:21 IMPRESSION: 1. Diffuse scrotal edema and moderate-sized right and minimal left hydroceles. Normal testes and epididymides. Lower Extremity CT 01/20/24 18:18 IMPRESSION: Marked scrotal edema. Diffuse left lower extremity subcutaneous stranding and fluid, most pronounced over the lateral thigh, lateral lower leg, and dorsum of the foot, may represent edema or cellulitis. Pelvis CT 01/20/24 18:18 IMPRESSION: Marked scrotal edema. Diffuse left lower extremity subcutaneous stranding and fluid, most pronounced over the lateral thigh, lateral lower leg, and dorsum of the foot, may represent edema or cellulitis. <Kelsy Munguia PA-C - Last Filed: 01/20/24 20:50> ECG Data EKG #1: ECG completion date: 01/20/24 <PANDA Silva Last Filed: 01/20/24 20:50> EKG Interpretation: normal rate, sinus rhythm, LBBB and normal QT <Kelsy Munguia PA-C - Last Filed: 01/20/24 20:50> Critical Care Time Critical Care Time Critical Care Time: Yes <PANDA Silva Last Filed: 01/20/24 20:50> Total Critical Care Time: 35 <Kelsy Munguia PA-C - Last Filed: 01/20/24 20:50> Discharge Plan Discharge Clinical Impression: Cellulitis, scrotum, Acute kidney injury superimposed on CKD, Intertrigo Cellulitis Qualifiers: Site of cellulitis: extremity Site of cellulitis of extremity: lower extremity Laterality: left Qualified Code(s): L03.116 - Cellulitis of left lower limb <Arlette Kwan APRN - Last Filed: 01/20/24 13:56> Patient Disposition: Acute Care Hospital <Arlette Kwan APRN - Last Filed: 01/20/24 13:56> Condition: Serious <Arlette Kwan APRN - Last Filed: 01/20/24 13:56>
[2024-01-20 14:17] LABS: Basophils Absolute Auto 0.1 K/mm3 (0.0-0.1); Basophils Percent Auto 0.2 % (0.2-1.2); Hematocrit 34.2 % (42.0-52.0); Hemoglobin 10.9 g/dL (14.0-18.0); Immature Granulocyte Absolute 0.25 K/mm3 (0.00-0.031); Lymphocytes Absolute Auto 0.63 K/mm3 (0.9-3.2); Lymphocytes Percent Auto 2.6 % (18.3-44.2); Mean Corpuscular HGB Conc 31.9 g/dl (32-36); Mean Corpuscular Hemoglobin 28.8 pg (26-34); Mean Corpuscular Volume 90.5 fl (80-100); Monocytes Absolute Auto 1.4 K/mm3 (0.1-0.6); Monocytes Percent Auto 5.9 % (2.6-8.5); Neutrophils Absolute Auto 21.7 K/mm3 (1.3-6.7); Neutrophils Percent Auto 90.3 % (45.5-73.1); Platelet Count Result 280 k/mm3 (150-375); Red Blood Count 3.78 M/mm3 (4.6-6.20); Red Cell Distribution Width 14.1 % (11.5-14.5); White Blood Count 24.1 K/mm3 (4.5-10.0)
--- NOTE | 2024-01-20 14:17 | PC.NURSE ---
EDP Arlette Mahmood made aware of pt BP 104/46
[2024-01-20 14:31] LABS: Lactic Acid Reflex 1.5 mmol/L (0.7-2.0)
[2024-01-20 14:35] LABS: Alanine Aminotransferase 27 U/L (6-50); Albumin Level 4.2 g/dL (3.5-5.1); Alkaline Phosphatase 97 U/L (38-126); Anion Gap 16 mmol/L (4-12); Aspartate Amino Transferase 30 U/L (17-59); Bilirubin,Total 0.5 mg/dL (0.2-1.3); Blood Urea Nitrogen 81 mg/dL (9-20); Calcium 9.9 mg/dL (8.4-10.2); Carbon Dioxide 21 mmol/L (22-30); Chloride 101 mmol/L (98-107); Estimated CRCL calculation 24 ml/min; Estimated Glomerular Filt Rate 18; Glucose 142 mg/dL (65-110); Potassium 3.3 mmol/L (3.4-5.0); Sodium 138 mmol/L (137-145)
[2024-01-20 14:39] LABS: INR 1.3; Prothrombin Time 16.7 Seconds (11.1-14.7)
[2024-01-20 14:40] LABS: Partial Thromboplastin Time 62.2 Seconds (22.3-36.8)
[2024-01-20 14:44] LABS: Troponin I 0.046 ng/mL (0.000-0.034)
[2024-01-20 15:15] LABS: CRP 32.6 mg/dL (<1.0)
--- NOTE | 2024-01-20 16:20 | PC.NURSE ---
Pt cleaned of yeast and feces with with soap and water.
[2024-01-20] MEDS: HYDROcodone/acetaminophen (*CRX) 5-325 MG TABLET 1 TAB PO (16:33)
--- NOTE | 2024-01-20 17:07 | ECG_ITS ---
Test Date: 2024-01-20 18:26:05 Measurements Intervals [place] Rate: 56 P: 68 OR: 220 QRS: -53 QRSD: 170 T: 95 QT: 467 QTc: 454 Interpretive Statements SINUS BRADYCARDIA WITH FIRST DEGREE AV BLOCK LEFT AXIS DEVIATION [QRS AXIS < -30] LEFT BUNDLE BRANCH BLOCK [120+ ms QRS DURATION, 80+ ms Q/S IN V1/V2, 85+ ms R IN I/aVL/V5/V6] Compared to ECG 01/20/2024 14:08:22 NO SIGNIFICANT CHANGES Electronically Signed On 01-21-2024 14:26:49 CDT by Brea Diop M.D.
[2024-01-20 17:56] LABS: Troponin I 0.043 ng/mL (0.000-0.034)
--- NOTE | 2024-01-20 18:00 | PC.NURSE ---
Pt SOPHIE for imaging. will start ordered meds and complete ekg when pt returns.
[2024-01-20 18:06] LABS: Magnesium 2.3 mg/dL (1.6-2.3)
[2024-01-20] MEDS: SODIUM CHLORIDE 0.9% IV 500 ML 999 ML IV CONT ×2 (18:25→21:01)
[2024-01-20] MEDS: CEFEPIME 2 GM/NS 50 ML 2 GM/50 ML BAG IVPB (18:25)
--- NOTE | 2024-01-20 18:36 | PC.NURSE ---
Pt unable to urinate. Pt states his fluid intake has been poor. Bladder scan revealed 7mL in bladder. HANANE Munguia notified. Unable to collect urine sample.
[2024-01-20 19:35] LABS: Erythrocyte Sedimentation Rate 133 mm/hr (0-20)
[2024-01-20] MEDS: metroNIDAZOLE 500 MG/ISO 100ML 500 MG/100 ML BAG 100 MG IVPB (19:35)
--- NOTE | 2024-01-20 20:32 | ADMGEN ---
This patient, Amish Richter, was admitted to IMU Room 232-01. Patient/family oriented to hospital policies and general routines including ID bracelet, bed and alarms, visiting hours, pain management, procedures, bathroom and other care routines, personal items, smoking policy, room service/diet, and visiting hours. Information on how to activate the Rapid Response Team has been discussed. Patient/Family are encouraged to report perceived risks to care and to ask questions if they do not understand what they are told or what they should do.
[2024-01-20] MEDS: VANCOMYCIN 1,750 MG/NS 500 ML 1,750 MG/500 ML BAG 250 MG IVPB (20:49)
[2024-01-20 20:53] LABS: Hemoglobin A1C 6.8 % (<5.7)
[2024-01-20] MEDS: POTASSIUM CHLORIDE 20 MEQ ER TABLET 40 MEQ PO (21:04)
[2024-01-20] MEDS: MICONAZOLE NITRATE 2% CREAM 30 GM TUBE 1 APPLIC TOPICAL (21:05)
[2024-01-20 21:15] LABS: Glucose Point of Care 135 mg/dl (65-105)
--- NOTE | 2024-01-20 21:30 | PC.NURSE ---
Received report from Annabel ED RN at 2014. Patient arrived to room 232 at 2031 via stretcher without issue.
[2024-01-20 22:04] LABS: Add Urine Microscopic? YES; Appearance Urine Clear (Clear); Bacteria Urine None Seen /hpf; Bilirubin Urine Negative (Negative); Blood Urine Negative (Negative); Color Urine Yellow (Yellow); Glucose Urine UA Negative (Negative); Ketones Urine Negative (Negative); Leukocyte Esterase Ur Negative LEU/UL (Negative); Need Manual Microscopic Reviewed; Nitrate Urine Negative (Negative); Protein Urine 1+ mg/dL (Negative); RBC Urine 0-2 /hpf (0-2); Specific Grav Ur 1.013 (1.001-1.035); Squamous Epithelial Cell Urine None Seen /hpf (Few); Urobilinogen Urine 0.2 mg/dL (<2.0); WBC Urine 0-5 /hpf (0-3)
[2024-01-20] MEDS: POTASSIUM CHLORIDE 20 MEQ PACKET (FOR LIQUID) PO (22:35)
[2024-01-21] VITALS (17 sets, daily range): BP systolic 110–123; BP diastolic 39–52; PULSE 51–59; RESP 16–20; TEMP 36.7–37; O2SAT 96–100
--- NOTE | 2024-01-21 01:50 | P.HP_ITS ---
H&P: HPI History of Present Illness Date/Time: 01/21/24 01:50 Chief Complaint: Left leg and scrotal redness and pain for 3 days. 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 The patient reported his initial symptoms started with stiffness of the left ankle and knee. Initially it was just uncomfortable for him to stand to pivot and transfer from his wheelchair to his Rollator to ambulate with his right lower extremity prosthesis. But as the week progressed the pain became more severe to where he was only barely able to stand and pivot with extreme pain. He reported the pain was a 9/10 in intensity at its worst. Pain was worse with weight bearing. He denied any associated fevers or chills. He denies any significant chest pain, shortness a breath, lightheadedness. He denies any dysuria, inc reased urinary frequency or hematuria. He has not had any changes in his bowel habits. He denies any ill contacts. He does have chronic left lower extremity swelling that is worse over the last week. He reported the major portion of the swelling was more in the inner thigh on the left side. He reports that he had noticed scrotal swelling and erythema 3 days ago and that the swelling has gotte n worse since then. It is a little bit uncomfortable after having the scrotal ultrasound performed but he denies any overt pain. He denies any recent changes in his home medications. In hindsight he admits the may have decreased his intake of fluids because it was so difficult for him to pivot and get into the bathroom. He reports improved urine output since admission to the hospital. In the ER he received a total of 1 L of fluid in 2 separate 500 boluses. In the ER he received of 40 mEq tablet of potassium chloride. I had ordered a 2nd dose of potassium chloride powder but this was when I had not realize patient had already received potassium supplements. He he chose not to drink the liquid potassium supplement. He reports that he has had issues with elbow pain and effusion like this in the past. He was tested for gout and was told that he did not have gout but someone mention the possibility of pseudogout. He does not know if he actually has a diagnosis of pseudogout or not. Review of Systems Review of Systems: 12 systems were reviewed with pertinent positives and negatives per HPI. Except as documented in the HPI, all other systems were reviewed and are negative. 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 Imer Metz Diabetes Diabetic peripheral neuropathy Essential hypertension History of DVT (deep vein thrombosis) (~2009) Hyperlipidemia Hyperparathyroidism due to renal insufficiency Inflammation of right elbow Inflammatory monoarthritis of right elbow Kidney stones Peripheral vascular disease Type 2 diabetes mellitus A1c 01/20/2024 6.8% Surgical History Surgical History (Updated 01/20/24 @ 22:31 by Laverne Seymour DO) History of amputation (05/10/10) Due to Coumadin induced necrosis and complicated by respiratory failure and renal failure requiring temporary dialysis History of cholecystectomy (~1998) History of colonoscopy with polypectomy (05/2021) Status post cataract extraction and insertion of intraocular lens of left eye Family History Family History Father Heart disease Mother Liver cancer Hypertension Sibling Brain cancer Hypertension Grandparent Cancer Other Diabetes mellitus Social History Social History (Updated 01/21/24 @ 08:40 by Laverne Seymour DO) Social History: Patient is . He lives in his own apartment alone. He is a lifelong nonsmoker and denies any alcohol or illicit substance use. He does drink moderate amounts caffeine in the form of hot tea. 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 He reports that he has both the daughter and stepdaughter that her his support system. He is mobile through a wheelchair and has a prosthetic for his right lower extremity. He is usually able to stand with a rolling walker and ambulate around his house. Code status: Full code Surrogate decision maker: Daughter and stepdaughter Smoking status: Never smoker Alcohol intake: never Substance use: never Substance use type: does not use Do You Feel Safe in your Home?: Yes Lack of Transportation: No Lack of Food: Never True Current Housing: I Have Housing Concerned About Future Housing: No Difficulty Paying Gas/Electric Bills: No Difficulty Paying for Meds: No Currently Unemployed: No Education: Bachelor's Degree Difficulty w/ Childcare or Family Care: No Living arrangements: alone Occupation/Education: retired Gender identity (if verbalized by the patient): Male Spiritual care concerns: No Meds Home Medications and Allergies Home Medications Medication Instructions Recorded Confirmed Type aspirin 81 mg tablet,delayed 81 mg PO DAILY 11/01/20 01/20/24 History release (Adult Aspirin Regimen) blood ketone glucose monitor 11/01/20 01/20/24 History nebivolol 20 mg tablet 20 mg PO DAILY #90 tabs 12/24/22 01/20/24 Rx cholecalciferol (vitamin D3) 50 50 mcg PO DAILY 01/15/23 01/20/24 History mcg (2,000 unit) capsule ferrous sulfate 325 mg (65 mg 325 mg PO BID 02/12/23 01/20/24 History iron) tablet alokjqhl-oc-mhtjw 300 mcg-K 60 1 tablet PO DAILY 02/12/23 01/20/24 History mcg-lycop 600 mcg-lutein 300 mcg tablet (Centrum Silver Men) atorvastatin 20 mg tablet 20 mg PO DAILY #90 tabs 09/08/23 01/20/24 Rx empagliflozin 10 mg tablet 10 mg PO DAILY #90 tabs 10/15/23 01/20/24 Rx (Jardiance) furosemide 40 mg tablet 40 mg PO QAM #90 tabs 12/05/23 01/20/24 Rx amlodipine 5 mg tablet 5 mg PO DAILY 01/20/24 01/20/24 History hydralazine 100 mg tablet 100 mg PO DAILY 01/20/24 01/20/24 History hydrochlorothiazide 25 mg tablet 25 mg PO DAILY 01/20/24 01/20/24 History Allergies Allergy/AdvReac Type Severity Reaction Status Date / Time Penicillins Allergy Intermediate unknown Verified 01/20/24 21:16 clindamycin Allergy Unknown RASH AND Verified 01/20/24 21:16 ITCHING warfarin [From Coumadin] Allergy Unknown Unknown Verified 01/20/24 21:16 Vital Signs Vital Signs - 24 hr 01/20/24 11:35 01/20/24 14:02 01/20/24 18:27 Temperature 97.7 F Pulse Rate 68 66 57 L Respiratory Rate 16 16 19 Blood Pressure 120/63 104/46 L 127/60 Pulse Oximetry 99 97 95 Oxygen Delivery Room Air 01/20/24 19:34 01/20/24 20:40 Temperature 98.3 F Pulse Rate 61 62 Respiratory Rate 16 18 Blood Pressure 131/62 139/54 L Pulse Oximetry 98 99 Oxygen Delivery Exam Narrative: Weight 112.6 kg BMI 33.7 Const: Other: Appears stated age, overweight, chronically ill-appearing, no acute distress HENMT: Other: Head is normocephalic atraumatic, mucous membranes are moist, no oral pharyngeal erythema Eyes: Other: Maturing cataracts grade eye, lens implant left eye, positive conjunctival pallor, no scleral icterus Neck: Other: No JVD, supple, nontender Resp: Other: Clear to auscultation bilaterally, no increased work Cardio: Other: Mildly bradycardic, regular rhythm, 2+ bilateral radial pulses 1+ left pedal pulse, no murmur appreciated GI: Other: Soft, nontender, nondistended, no obvious body wall edema, positive bowel sounds : Other: Patient has edema bilateral scrotum right greater than left with erythema bilateral scrotum but no increased warmth compared to the patient's other areas of skin temperature, the right testicle is somewhat firmer in texture patient has significant amount of moisture in the groin, inguinal folds and under his abdominal apron Skin: Other: Generalized pallor, non jaundice, no large areas of bruising Neuro: Other: Alert orient x4, speech is clear, no facial asymmetry, moves all extremities equally Extrem: Other: Right jaqxg-[id number]-[id number] amputation, the amputation of the 3rd digit of the left foot, chronic skin darkening and changes consistent with history of peripheral vascular disease of dorsum of the left foot, chronic edema to the left ankle, significant decreased range of motion of the left ankle and knee due to pain in both passive and active range of motion Psych: Other: Appropriate mood and affect, Extremely pleasant and cooperative, judgment and insight intact H&P: Results Labs Labs: Laboratory Tests 01/20/24 14:04 01/20/24 14:04 01/20/24 01/20/24 01/20/24 14:04 17:11 21:13 WBC 24.1 H RBC 3.78 L Hgb 10.9 L Hct 34.2 L MCV 90.5 MCH 28.8 MCHC 31.9 L RDW 14.1 Plt Count 280 MPV 9.0 Immature Gran % (Auto) 1.0 H Neut % (Auto) 90.3 H Lymph % (Auto) 2.6 L [place] % (Auto) 5.9 Eos % (Auto) 0.0 Baso % (Auto) 0.2 Lymph # (Auto) 0.63 L [place] # (Auto) 1.4 H Eos # (Auto) 0.0 Baso # (Auto) 0.1 Abs Immat Gran (auto) 0.25 H Absolute Neuts (auto) 21.7 H Absolute Nucleated RBC 0.000 Nucleated RBC % 0.0 ESR 133 H PT 16.7 H INR 1.3 APTT 62.2 H Sodium 138 Potassium 3.3 L Chloride 101 Carbon Dioxide 21 L Anion Gap 16 H BUN 81 H Creatinine 3.40 H Estim Creat Clear Calc 24 Estimated GFR 18 L Glucose 142 H POC Capillary Glucose 135 H Hemoglobin A1c 6.8 H Lactic Acid 1.5 Calcium 9.9 Magnesium 2.3 Total Bilirubin 0.5 AST 30 ALT 27 Alkaline Phosphatase 97 Troponin I 0.046 H* 0.043 H* C-Reactive Protein 32.6 H Total Protein 8.0 Albumin 4.2 Urine Color Urine Appearance Urine pH Ur Specific [place] Urine Protein Urine Glucose (UA) Urine Ketones Ur Blood (Man) Urine Nitrate Urine Bilirubin Urine Urobilinogen Add Ur Microanalysis Leukocyte Esterase Rfl Urine RBC Urine WBC Ur Squamous Epith Cells Urine Bacteria Urine Casts 01/20/24 21:42 WBC RBC Hgb Hct MCV MCH MCHC RDW Plt Count MPV Immature Gran % (Auto) Neut % (Auto) Lymph % (Auto) [place] % (Auto) Eos % (Auto) Baso % (Auto) Lymph # (Auto) [place] # (Auto) Eos # (Auto) Baso # (Auto) Abs Immat Gran (auto) Absolute Neuts (auto) Absolute Nucleated RBC Nucleated RBC % ESR PT INR APTT Sodium Potassium Chloride Carbon Dioxide Anion Gap BUN Creatinine Estim Creat Clear Calc Estimated GFR Glucose POC Capillary Glucose Hemoglobin A1c Lactic Acid Calcium Magnesium Total Bilirubin AST ALT Alkaline Phosphatase Troponin I C-Reactive Protein Total Protein Albumin Urine Color Yellow Urine Appearance Clear Urine pH 5.0 Ur Specific [place] 1.013 Urine Protein 1+ H Urine Glucose (UA) Negative Urine Ketones Negative Ur Blood (Man) Negative Urine Nitrate Negative Urine Bilirubin Negative Urine Urobilinogen 0.2 Add Ur Microanalysis Reviewed Leukocyte Esterase Rfl Negative Urine RBC 0-2 Urine WBC 0-5 Ur Squamous Epith Cells None seen Urine Bacteria None seen Urine Casts 11-20 Impressions Ankle X-Ray 01/20/24 14:29 IMPRESSION: 1. Mild midfoot osteoarthritis. Foot X-Ray 01/20/24 14:29 IMPRESSION: 1. Mild polyarticular osteoarthritis. Venous Doppler Study 01/20/24 17:19 IMPRESSION: 1. No deep venous thrombosis in the left lower limb. Scrotum Ultrasound 01/20/24 17:21 IMPRESSION: 1. Diffuse scrotal edema and moderate-sized right and minimal left hydroceles. Normal testes and epididymides. Lower Extremity CT 01/20/24 18:18 IMPRESSION: Marked scrotal edema. Diffuse left lower extremity subcutaneous stranding and fluid, most pronounced over the lateral thigh, lateral lower leg, and dorsum of the foot, may represent edema or cellulitis. Pelvis CT 01/20/24 18:18 IMPRESSION: Marked scrotal edema. Diffuse left lower extremity subcutaneous stranding and fluid, most pronounced over the lateral thigh, lateral lower leg, and dorsum of the foot, may represent edema or cellulitis. Assessment and Plan Assessment and plan (1) Cellulitis of left leg without foot: Code(s): L03.116 - Cellulitis of left lower limb Status: Acute (2) Cellulitis, scrotum: Code(s): N49.2 - Inflammatory disorders of scrotum Status: Acute (3) Acute kidney injury superimposed on CKD: Code(s): N17.9 - Acute kidney failure, unspecified; N18.9 - Chronic kidney disease, unspecified Status: Acute (4) Bilateral hydrocele: Code(s): N43.3 - Hydrocele, unspecified Status: Acute (5) Elevated troponin: Code(s): R79.89 - Other specified abnormal findings of blood chemistry Status: Acute (6) Acute hypokalemia: Code(s): E87.6 - Hypokalemia Status: Acute (7) Diabetes: Qualifiers: Chronic kidney disease stage: stage 3 (moderate) Chronic kidney disease stage 3 subtype: stage 3a (GFR 45-59) Diabetes mellitus complication detail: with chronic kidney disease Diabetes mellitus complication status: with kidney complications Diabetes mellitus intermodal dispatcher insulin use: without group home use Diabetes mellitus type: type 2 Qualified Code(s): E11.22 - Type 2 diabetes mellitus with diabetic chronic kidney disease; N18.31 - Chronic kidney disease, stage 3a Code(s): E11.9 - Type 2 diabetes mellitus without complications Status: Acute (8) Anemia of chronic disease: Code(s): D63.8 - Anemia in other chronic diseases classified elsewhere Status: Acute Plan Pain of the left lower extremity with associated edema no obvious area of erythema of the left lower extremity no open wounds, however given the degree of patient's pain is certainly could be possible underlying infection of ankle or knee joint. However the joints themselves also do not appear overtly erythematous the make me more suspicious for acute gouty event. The patient does seem to have some significant erythema and swelling to the scrotum and some slightly increased warmth. Ultrasound of scrotum did not indicate any localizing abscess or infection. The patient was started on empiric antibiotic therapy with cefepime and vancomycin. Will repeat CBC and electrolyte panel in a.m.. Blood cultures are pending. Will narrow antibiotic coverage based on culture results. Patient has acute kidney injury on chronic kidney disease likely in part due to intravascular volume depletion with decreased oral intake with the additional use of Lasix and Farxiga. Will hold these agents. Patient did receive a total of 1 L of fluid bolus in the ER. Will hold off on any additional IV fluids and will encourage patient to increase oral intake. Will re-evaluate electrolyte panel in a.m.. If electrolytes not improving will consider Nephrology consult. Patient did have some mild hypokalemia and received 40 mEq of potassium chloride in the ER. I did order another 20 mEq dose but given the patient's acute on chronic kidney injury I instructed nursing staff that the patient did not need to take the 2nd dose of potassium and we would re-evaluate the need for further potassium after repeat labs in the morning. If hypokalemia persists we may also need to evaluate patient's phosphorus. Patient does have a known history of secondary hyperparathyroidism due to his chronic kidney disease. Patient's magnesium level was normal. Patient does have anemia chronic disease. Hemoglobin was down 1 g compared to values from the last several months. Possibly due to acute on chronic kidney injury. Will repeat CBC in a.m. and monitor. No obvious signs of bleeding. Patient has been placed on DVT prophylaxis with renally dosed Lovenox. Patient's oral hypoglycemic agent are on hold due to acute kidney injury. Will place patient on sliding scale insulin with Accu-Cheks a.c. HS and hypoglycemia protocol. Hemoglobin A1c is been obtained. Patient does have elevated troponin but his troponin is completely flat. Quality VTE Prophylaxis VTE prophylaxis: pharmacologic ordered (Lovenox 30 mg subQ daily.) Hospitalist [facility] Advance Care Plan I have confirmed that the patient's Advanced Care Plan is present, code status is documented, or surrogate decision maker is listed in patient medical record.: Yes Medication Reconciliation I have utilized all available resources to obtain, update and review the patients current medications (includes all prescriptions, OTC, herbals, c annabis, and nutritional supplements).: Yes
[2024-01-21] MEDS: metroNIDAZOLE 500 MG/ISO 100ML 500 MG/100 ML BAG 100 MG IVPB ×3 (05:19→22:30)
[2024-01-21 05:37] LABS: Basophils Absolute Auto 0.1 K/mm3 (0.0-0.1); Basophils Percent Auto 0.3 % (0.2-1.2); Hematocrit 27.8 % (42.0-52.0); Hemoglobin 8.8 g/dL (14.0-18.0); Immature Granulocyte Absolute 0.23 K/mm3 (0.00-0.031); Immature Granulocyte Percent A 1.3 % (0-0.5); Lymphocytes Absolute Auto 0.79 K/mm3 (0.9-3.2); Lymphocytes Percent Auto 4.5 % (18.3-44.2); Mean Corpuscular HGB Conc 31.7 g/dl (32-36); Mean Corpuscular Hemoglobin 29.1 pg (26-34); Mean Corpuscular Volume 92.1 fl (80-100); Mean Platelet Volume 8.7 fl (7.4-10.4); Monocytes Absolute Auto 1.3 K/mm3 (0.1-0.6); Monocytes Percent Auto 7.3 % (2.6-8.5); Neutrophils Absolute Auto 15.1 K/mm3 (1.3-6.7); Neutrophils Percent Auto 86.6 % (45.5-73.1); Platelet Count Result 214 k/mm3 (150-375); Red Blood Count 3.02 M/mm3 (4.6-6.20); Red Cell Distribution Width 14.4 % (11.5-14.5); White Blood Count 17.5 K/mm3 (4.5-10.0)
[2024-01-21 05:44] LABS: Anion Gap 12 mmol/L (4-12); Blood Urea Nitrogen 79 mg/dL (9-20); Carbon Dioxide 20 mmol/L (22-30); Chloride 107 mmol/L (98-107); Estimated CRCL calculation 26 ml/min; Estimated Glomerular Filt Rate 20; Glucose 99 mg/dL (65-110); Potassium 3.1 mmol/L (3.4-5.0); Sodium 139 mmol/L (137-145)
[2024-01-21 08:08] LABS: Glucose Point of Care 106 mg/dl (65-105)
--- NOTE | 2024-01-21 09:14 | P.PNIM_ITS ---
Progress Note: A&P Assessment and Plan (1) Cellulitis of left leg without foot: Code(s): L03.116 - Cellulitis of left lower limb Status: Acute Assessment and Plan: Pain of the left lower extremity with associated edema no obvious area of erythema of the left lower extremity no open wounds, however given the degree of patient's pain could be underlying infection of ankle or knee joint. However the joints themselves also do not appear overtly erythematous which increases suspicious for acute gouty event. - Ankle XR: mild midfoot OA - Foot XR: mild polyarticular OA - Lower extremity/ pelvis CT: Marked scrotal edema. Diffuse left lower extremity subcutaneous stranding and fluid, most pronounced over the lateral thigh, lateral lower leg, and dorsum of the foot, may represent edema or cellulitis. - Antibiotics: Vanc, cefe, flagyl started on 01/19 - Blood cultures obtained on 01/19: pending - Monitor vital signs, I&Os, neuro status and patient is a fall risk - Monitor serum electrolytes, CBC, cultures, WBC and temp curve (2) Cellulitis, scrotum: Code(s): N49.2 - Inflammatory disorders of scrotum Status: Acute Assessment and Plan: The patient does have some significant erythema and swelling to the scrotum and some slightly increased warmth. - Ultrasound of scrotum did not indicate any localizing abscess or infection. Diffuse scrotal edema and moderate-sized right and minimal left hydroceles. Normal testes and epididymides. - Lower extremity/ pelvis CT: Marked scrotal edema. Diffuse left lower extremity subcutaneous stranding and fluid, most pronounced over the lateral thigh, lateral lower leg, and dorsum of the foot, may represent edema or cellulitis. - Antibiotics: Vanc, cefe, flagyl started on 01/19 - Blood cultures obtained on 01/19: pending - Monitor vital signs, I&Os, neuro status and patient is a fall risk - Monitor serum electrolytes, CBC, cultures, WBC and temp curve (3) Acute kidney injury superimposed on CKD: Code(s): N17.9 - Acute kidney failure, unspecified; N18.9 - Chronic kidney disease, unspecified Status: Acute Assessment and Plan: BUN/Cr 81/3.4 with GFR 18 on admission. Likely due to dehydration secondary to decreased oral intake with use of lasix and jardiance. Received 1 L fluid bolus in the ED. Baseline appears to be 1.8-2.2. Follows DR. Metz. - BUN/Cr 79/3.1 with GFR 20 on am labs - Renally dose medications - Avoid nephrotoxic medications - Hold lasix and farxiga (4) Anemia of chronic disease: Code(s): D63.8 - Anemia in other chronic diseases classified elsewhere Status: Acute Assessment and Plan: Hemoglobin was down 1 g compared to values from the last several months on admission. Possibly due to acute on chronic kidney injury. No obvious signs of bleeding. - H/H 8.8/27.8 - Monitor (5) Diabetes: Qualifiers: Chronic kidney disease stage: stage 3 (moderate) Chronic kidney disease stage 3 subtype: stage 3a (GFR 45-59) Diabetes mellitus complication detail: with chronic kidney disease Diabetes mellitus complication status: with kidney complications Diabetes mellitus terminal operator insulin use: without mcfp use Diabetes mellitus type: type 2 Qualified Code(s): E11.22 - Type 2 diabetes mellitus with diabetic chronic kidney disease; N18.31 - Chronic kidney disease, stage 3a Code(s): E11.9 - Type 2 diabetes mellitus without complications Status: Acute Assessment and Plan: - hypoglycemia protocol - POC blood glucose ACHS - home medication - Jardiance - correct regimen ordered - Patient's oral hypoglycemic agent are on hold due to acute kidney injury. Started on low dose TIDWM and HS - A1C 6.8 (6) Elevated troponin: Code(s): R79.89 - Other specified abnormal findings of blood chemistry Status: Acute Assessment and Plan: Patient does have elevated troponin but his troponin is completely flat. 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 Patient is pleasant sitting on the side of his bed working with therapy. States that the pain and swelling of the left lower extremity as well as the scrotal pain has greatly improved during admission. He remains on vanc, cefepime, Flagyl at this time with improving white blood cell count on a.m. labs. He also has improvement of his Cr level and urine output remains WNL.Patient denies chest pain, shortness of breath, nausea/vomiting and abdominal pain. Review of Systems Review of Systems: All systems reviewed & are unremarkable except as noted in HPI and below Exam Narrative: AF HR 57 RR 20 SpO2 98 BP 123/47 General: male in no acute respiratory distress who is nontoxic appearing, lying semi recumbent in bed. HEENT: Normocephalic. Atraumatic. Extraocular movement intact. Sclera clear and anicteric. No facial asymmetry. Chest: Lungs are clear to auscultation bilaterally. No wheezes or crackles. CV: Heart was regular rate and rhythm. S1/S2. No murmurs, gallops, or rubs. Abd: Abdomen was soft. Nontender. Nondistended. Positive bowel sounds. No organomegaly or masses. Ext: Right BKA. Left lower extremity with mild edema and redness extending from the dorsum of the foot to the mid henderson. Neuro: Patient is alert and oriented x4. Cranial nerves 2-12 are intact. Speech is clear. Objective Data Vital Signs Vital Signs: Vital Signs - 24 hr 01/20/24 11:35 01/20/24 14:02 01/20/24 18:27 Temperature 97.7 F Pulse Rate 68 66 57 L Respiratory Rate 16 16 19 Blood Pressure 120/63 104/46 L 127/60 Pulse Oximetry 99 97 95 Oxygen Delivery Room Air 01/20/24 19:34 01/20/24 20:40 01/20/24 21:43 Temperature 98.3 F Pulse Rate 61 62 57 L Respiratory Rate 16 18 18 Blood Pressure 131/62 139/54 L Pulse Oximetry 98 99 99 Oxygen Delivery Room Air 01/20/24 20:40 01/20/24 22:00 01/20/24 23:40 Temperature 98 F Pulse Rate 56 L 55 L 55 L Respiratory Rate 18 Blood Pressure 112/49 L Pulse Oximetry 97 Oxygen Delivery 01/21/24 00:00 01/21/24 00:00 01/21/24 02:00 Temperature Pulse Rate 53 L 53 L 52 L Respiratory Rate Blood Pressure Pulse Oximetry 100 Oxygen Delivery Room Air 01/21/24 04:00 01/21/24 04:00 01/21/24 04:00 Temperature 98.1 F Pulse Rate 51 L 53 L 52 L Respiratory Rate 16 Blood Pressure 123/52 L Pulse Oximetry 100 96 Oxygen Delivery Room Air 01/21/24 06:00 01/21/24 07:24 Temperature 98.1 F Pulse Rate 57 L 58 L Respiratory Rate 18 Blood Pressure 110/45 L Pulse Oximetry 97 Oxygen Delivery Intake/Output Intake/Output: Intake & Output 01/18/24 01/19/24 01/20/24 01/21/24 23:59 23:59 23:59 23:59 Intake Total 1650 Output Total 800 Balance 1650 -800 Meds/Results Medications: Active Medications Generic Name Dose Route Start Last Admin Trade Name Freq PRN Reason Stop Dose Admin Amlodipine Besylate 5 mg 01/21/24 09:00 Amlodipine Besylate 5 Mg Tablet PO DAILY [facility] Aspirin 81 mg 01/21/24 09:00 Aspirin 81 Mg Enteric Tablet PO DAILY [facility] Atorvastatin Calcium 20 mg 01/21/24 09:00 Atorvastatin 20 Mg Tablet PO DAILY [facility] Dextrose 12.5 gm 01/20/24 22:24 Dextrose 50% 25 Gm/50 Ml Syringe IV PUSH PRN PRN Hypoglycemia Protocol Enoxaparin Sodium 30 mg 01/21/24 09:00 Enoxaparin 30 Mg/0.3 Ml Syringe SUB-Q DAILY [facility] Ferrous Sulfate 325 mg 01/21/24 09:00 Ferrous Sulfate [address] BY MOUTH BID [facility] Glucagon 1 mg 01/20/24 22:24 Glucagon For Inj 1 Mg Vial IM PRN PRN Hypoglycemia Protocol Glucose 15 gm 01/20/24 22:24 Glucose Oral Gel 15 Gm Of Glucse In 37.5 Gm Tube PO PRN PRN Hypoglycemia Protocol Hydralazine HCl 100 mg 01/21/24 09:00 Hydralazine Hcl 50 Mg Tablet PO DAILY [facility] Cefepime HCl 1 gm in 50 mls @ 100 mls/hr 01/21/24 18:00 Maxipime 1 Gm/Ns 50 Ml IVPB Q24H JUDY Metronidazole 500 mg in 100 mls @ 100 mls/hr 01/21/24 05:00 01/21/24 05:19 Flagyl 500 Mg/Iso Soln 100 Ml IVPB 100 mls/hr Q8HR JUDY Administration Dextrose 1,000 mls @ 100 mls/hr 01/20/24 22:24 Dextrose 5% 1,000 Ml IVPB PRN PRN Hypoglycemia Protocol Insulin Aspart 2 - 5 units 01/21/24 08:00 Insulin Aspart (*Bkc) 100 Units/Ml SUB-Q TIDWM [facility] Protocol Insulin Aspart 1 - 2 units 01/21/24 21:00 Insulin Aspart (*Bkc) 100 Units/Ml SUB-Q HS [facility] Protocol Miconazole Nitrate 1 applic 01/20/24 21:00 01/20/24 21:05 Miconazole Nitrate 2% Cream 30 Gm Tube TOPICAL 1 applic Q12HR [facility] Administration Multivitamins/Minerals 1 tablet 01/21/24 09:00 Opti-Gen Tab PO DAILY [facility] Nebivolol 20 mg 01/21/24 09:00 Nebivolol Hcl 5 Mg Tablet PO DAILY [facility] Vancomycin HCl 1 each 01/20/24 21:07 Vancomycin For Acute Kidney Injury IVPB PRN PRN Vancomycin Protocol Vitamin D 2,000 units 01/21/24 09:00 Cholecalciferol 1,000 Units Tablet PO DAILY [facility] Radiology Results: ITS Impressions Ankle X-Ray 01/20/24 14:29 IMPRESSION: 1. Mild midfoot osteoarthritis. Foot X-Ray 01/20/24 14:29 IMPRESSION: 1. Mild polyarticular osteoarthritis. Venous Doppler Study 01/20/24 17:19 IMPRESSION: 1. No deep venous thrombosis in the left lower limb. Scrotum Ultrasound 01/20/24 17:21 IMPRESSION: 1. Diffuse scrotal edema and moderate-sized right and minimal left hydroceles. Normal testes and epididymides. Lower Extremity CT 01/20/24 18:18 IMPRESSION: Marked scrotal edema. Diffuse left lower extremity subcutaneous stranding and fluid, most pronounced over the lateral thigh, lateral lower leg, and dorsum of the foot, may represent edema or cellulitis. Pelvis CT 01/20/24 18:18 IMPRESSION: Marked scrotal edema. Diffuse left lower extremity subcutaneous stranding and fluid, most pronounced over the lateral thigh, lateral lower leg, and dorsum of the foot, may represent edema or cellulitis. Labs Labs: Laboratory Results - last 24 hr 01/20/24 01/20/24 01/20/24 14:04 17:11 21:13 WBC 24.1 H RBC 3.78 L Hgb 10.9 L Hct 34.2 L MCV 90.5 MCH 28.8 MCHC 31.9 L RDW 14.1 Plt Count 280 MPV 9.0 Immature Gran % (Auto) 1.0 H Neut % (Auto) 90.3 H Lymph % (Auto) 2.6 L Nobles % (Auto) 5.9 Eos % (Auto) 0.0 Baso % (Auto) 0.2 Lymph # (Auto) 0.63 L Nobles # (Auto) 1.4 H Eos # (Auto) 0.0 Baso # (Auto) 0.1 Abs Immat Gran (auto) 0.25 H Absolute Neuts (auto) 21.7 H Absolute Nucleated RBC 0.000 Nucleated RBC % 0.0 ESR 133 H PT 16.7 H INR 1.3 APTT 62.2 H Sodium 138 Potassium 3.3 L Chloride 101 Carbon Dioxide 21 L Anion Gap 16 H BUN 81 H Creatinine 3.40 H Estim Creat Clear Calc 24 Estimated GFR 18 L Glucose 142 H POC Capillary Glucose 135 H Hemoglobin A1c 6.8 H Lactic Acid 1.5 Calcium 9.9 Magnesium 2.3 Total Bilirubin 0.5 AST 30 ALT 27 Alkaline Phosphatase 97 Troponin I 0.046 H* 0.043 H* C-Reactive Protein 32.6 H Total Protein 8.0 Albumin 4.2 Procalcitonin Urine Color Urine Appearance Urine pH Ur Specific Metcalf Urine Protein Urine Glucose (UA) Urine Ketones Ur Blood (Man) Urine Nitrate Urine Bilirubin Urine Urobilinogen Add Ur Microanalysis Leukocyte Esterase Rfl Urine RBC Urine WBC Ur Squamous Epith Cells Urine Bacteria Urine Casts 01/20/24 01/21/24 01/21/24 21:42 05:17 07:23 WBC 17.5 H RBC 3.02 L Hgb 8.8 L Hct 27.8 L MCV 92.1 MCH 29.1 MCHC 31.7 L RDW 14.4 Plt Count 214 MPV 8.7 Immature Gran % (Auto) 1.3 H Neut % (Auto) 86.6 H Lymph % (Auto) 4.5 L Nobles % (Auto) 7.3 Eos % (Auto) 0.0 Baso % (Auto) 0.3 Lymph # (Auto) 0.79 L Nobles # (Auto) 1.3 H Eos # (Auto) 0.0 Baso # (Auto) 0.1 Abs Immat Gran (auto) 0.23 H Absolute Neuts (auto) 15.1 H Absolute Nucleated RBC 0.000 Nucleated RBC % 0.0 ESR PT INR APTT Sodium 139 Potassium 3.1 L Chloride 107 Carbon Dioxide 20 L Anion Gap 12 BUN 79 H Creatinine 3.10 H Estim Creat Clear Calc 26 Estimated GFR 20 L Glucose 99 POC Capillary Glucose 106 H Hemoglobin A1c Lactic Acid Calcium 9.0 Magnesium Total Bilirubin AST ALT Alkaline Phosphatase Troponin I C-Reactive Protein Total Protein Albumin Procalcitonin 1.0 Urine Color Yellow Urine Appearance Clear Urine pH 5.0 Ur Specific [place]calf 1.013 Urine Protein 1+ H Urine Glucose (UA) Negative Urine Ketones Negative Ur Blood (Man) Negative Urine Nitrate Negative Urine Bilirubin Negative Urine Urobilinogen 0.2 Add Ur Microanalysis Reviewed Leukocyte Esterase Rfl Negative Urine RBC 0-2 Urine WBC 0-5 Ur Squamous Epith Cells None seen Urine Bacteria None seen Urine Casts 11-20 Quality VTE Prophylaxis VTE prophylaxis: pharmacologic ordered
[2024-01-21] MEDS: ENOXAPARIN 30 MG/0.3 ML SYRINGE SUB-Q (09:42)
[2024-01-21] MEDS: amLODIPine BESYLATE 5 MG TABLET PO (09:43)
[2024-01-21] MEDS: CHOLECALCIFEROL 1,000 UNITS TABLET 2000 UNITS PO (09:43)
[2024-01-21] MEDS: FERROUS SULFATE 325 MG TABLET DR BY MOUTH ×2 (09:43→17:12)
[2024-01-21] MEDS: ATORVASTATIN 20 MG TABLET PO (09:43)
[2024-01-21] MEDS: OPTI-GEN TAB 1 TABLET PO (09:43)
[2024-01-21] MEDS: hydrALAZINE HCL 50 MG TABLET 100 MG PO (09:43)
[2024-01-21] MEDS: ASPIRIN 81 MG ENTERIC TABLET PO (09:43)
[2024-01-21] MEDS: NEBIVOLOL HCL 5 MG TABLET 20 MG PO (09:44)
[2024-01-21] MEDS: POTASSIUM CHLORIDE 20 MEQ ER TABLET 40 MEQ PO (09:54)
[2024-01-21] MEDS: MICONAZOLE NITRATE 2% CREAM 30 GM TUBE 1 APPLIC TOPICAL ×2 (09:58→21:42)
[2024-01-21 11:29] LABS: Glucose Point of Care 120 mg/dl (65-105)
[2024-01-21 16:18] LABS: Glucose Point of Care 132 mg/dl (65-105)
[2024-01-21] MEDS: CEFEPIME 1 GM/NS 50 ML 1 GM/50 ML BAG IVPB (17:12)
[2024-01-21 20:11] LABS: Glucose Point of Care 140 mg/dl (65-105)
[2024-01-21 20:58] LABS: Vancomycin Trough 10.3 ug/mL (10.0-20.0)
[2024-01-21] MEDS: VANCOMYCIN 1,500 MG/NS 500 ML 1,500 MG/500 ML BAG 250 MG IVPB (21:42)
[2024-01-22] VITALS (16 sets, daily range): BP systolic 113–132; BP diastolic 41–66; PULSE 41–57; RESP 14–18; TEMP 36.4–37; O2SAT 97–100
[2024-01-22 05:44] LABS: Alanine Aminotransferase 25 U/L (6-50); Albumin Level 2.9 g/dL (3.5-5.1); Alkaline Phosphatase 73 U/L (38-126); Anion Gap 10 mmol/L (4-12); Aspartate Amino Transferase 28 U/L (17-59); Bilirubin,Total 0.4 mg/dL (0.2-1.3); Blood Urea Nitrogen 72 mg/dL (9-20); Calcium 8.7 mg/dL (8.4-10.2); Carbon Dioxide 19 mmol/L (22-30); Chloride 111 mmol/L (98-107); Estimated CRCL calculation 29 ml/min; Estimated Glomerular Filt Rate 22; Glucose 135 mg/dL (65-110); Potassium 3.5 mmol/L (3.4-5.0); Sodium 140 mmol/L (137-145)
[2024-01-22 05:46] LABS: Basophils Absolute Auto 0.1 K/mm3 (0.0-0.1); Basophils Percent Auto 0.5 % (0.2-1.2); Eosinophils Percent Auto 0.1 % (0-4.4); Hematocrit 27.7 % (42.0-52.0); Hemoglobin 8.6 g/dL (14.0-18.0); Immature Granulocyte Percent A 1.4 % (0-0.5); Lymphocytes Absolute Auto 0.65 K/mm3 (0.9-3.2); Lymphocytes Percent Auto 4.5 % (18.3-44.2); Mean Corpuscular Hemoglobin 28.8 pg (26-34); Mean Corpuscular Volume 92.6 fl (80-100); Mean Platelet Volume 8.9 fl (7.4-10.4); Monocytes Absolute Auto 1.2 K/mm3 (0.1-0.6); Monocytes Percent Auto 8.5 % (2.6-8.5); Neutrophils Absolute Auto 12.3 K/mm3 (1.3-6.7); Platelet Count Result 229 k/mm3 (150-375); Red Blood Count 2.99 M/mm3 (4.6-6.20); Red Cell Distribution Width 14.5 % (11.5-14.5); White Blood Count 14.4 K/mm3 (4.5-10.0)
[2024-01-22] MEDS: metroNIDAZOLE 500 MG/ISO 100ML 500 MG/100 ML BAG 100 MG IVPB ×3 (06:55→21:22)
[2024-01-22 08:42] LABS: Glucose Point of Care 152 mg/dl (65-105)
--- NOTE | 2024-01-22 08:56 | PM.IMPN ---
Progress Note: A&P Assessment and Plan (1) Cellulitis of left leg without foot: Code(s): L03.116 - Cellulitis of left lower limb Status: Acute Assessment and Plan: Pain of the left lower extremity with associated edema no obvious area of erythema of the left lower extremity no open wounds, however given the degree of patient's pain could be underlying infection of ankle or knee joint. However the joints themselves also do not appear overtly erythematous which increases suspicious for acute gouty event. - Ankle XR: mild midfoot OA - Foot XR: mild polyarticular OA - Lower extremity/ pelvis CT: Marked scrotal edema. Diffuse left lower extremity subcutaneous stranding and fluid, most pronounced over the lateral thigh, lateral lower leg, and dorsum of the foot, may represent edema or cellulitis. - Antibiotics: Vanc, cefe, flagyl started on 01/19 - Blood cultures obtained on 01/19: NGTD - Monitor vital signs, I&Os, neuro status and patient is a fall risk - Monitor serum electrolytes, CBC, cultures, WBC and temp curve (2) Cellulitis, scrotum: Code(s): N49.2 - Inflammatory disorders of scrotum Status: Acute Assessment and Plan: The patient does have some significant erythema and swelling to the scrotum and some slightly increased warmth. - Ultrasound of scrotum did not indicate any localizing abscess or infection. Diffuse scrotal edema and moderate-sized right and minimal left hydroceles. Normal testes and epididymides. - Lower extremity/ pelvis CT: Marked scrotal edema. Diffuse left lower extremity subcutaneous stranding and fluid, most pronounced over the lateral thigh, lateral lower leg, and dorsum of the foot, may represent edema or cellulitis. - Antibiotics: Vanc, cefe, flagyl started on 01/19 - Blood cultures obtained on 01/19: NGTD - Monitor vital signs, I&Os, neuro status and patient is a fall risk - Monitor serum electrolytes, CBC, cultures, WBC and temp curve (3) Acute kidney injury superimposed on CKD: Code(s): N17.9 - Acute kidney failure, unspecified; N18.9 - Chronic kidney disease, unspecified Status: Acute Assessment and Plan: BUN/Cr 81/3.4 with GFR 18 on admission. Likely due to dehydration secondary to decreased oral intake with use of lasix and jardiance. Received 1 L fluid bolus in the ED. Baseline appears to be 1.8-2.2. Follows DR. Metz. - BUN/Cr 72/2.8 with GFR 22 on am labs - Decreased urine output - IV NS 1L bolus x 1 - Renally dose medications - Avoid nephrotoxic medications - Hold lasix and farxiga (4) Anemia of chronic disease: Code(s): D63.8 - Anemia in other chronic diseases classified elsewhere Status: Acute Assessment and Plan: Hemoglobin was down 1 g compared to values from the last several months on admission. Possibly due to acute on chronic kidney injury. No obvious signs of bleeding. - H/H 8.6/27.7 - Iron panel and B12/folate ordered - Monitor (5) Diabetes: Qualifiers: Chronic kidney disease stage: stage 3 (moderate) Chronic kidney disease stage 3 subtype: stage 3a (GFR 45-59) Diabetes mellitus complication detail: with chronic kidney disease Diabetes mellitus complication status: with kidney complications Diabetes mellitus tank terminal gauger insulin use: without tank terminal gauger use Diabetes mellitus type: type 2 Qualified Code(s): E11.22 - Type 2 diabetes mellitus with diabetic chronic kidney disease; N18.31 - Chronic kidney disease, stage 3a Code(s): E11.9 - Type 2 diabetes mellitus without complications Status: Acute Assessment and Plan: - hypoglycemia protocol - POC blood glucose ACHS - home medication - Jardiance - correct regimen ordered - Patient's oral hypoglycemic agent are on hold due to acute kidney injury. Started on low dose TIDWM and HS - A1C 6.8 (6) Elevated troponin: Code(s): R79.89 - Other specified abnormal findings of blood chemistry Status: Acute Assessment and Plan: Patient does have elevated troponin but his troponin is completely flat. 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 Patient is pleasant sitting up in his chair. He continues to endorse slight pain to his scrotum and left extremity below. He notes that the redness and swelling has improved though with continued antibiotics. He remains on IV antibiotics at this time and with blood cell continues to improve. He has decreased urine output with a slight QIAN on CKD. Will give him a L bolus and continue to monitor. Patient denies chest pain, shortness a breath, nausea/ vomiting, abdominal pain. Review of Systems Review of Systems: All systems reviewed & are unremarkable except as noted in HPI and below Exam Narrative: AF HR 53 RR 16 SpO2 99 BP 132/66 General: male in no acute respiratory distress who is nontoxic appearing, lying semi recumbent in bed. HEENT: Normocephalic. Atraumatic. Extraocular movement intact. Sclera clear and anicteric. No facial asymmetry. Chest: Lungs are clear to auscultation bilaterally. No wheezes or crackles. CV: Heart was regular rate and rhythm. S1/S2. No murmurs, gallops, or rubs. Abd: Abdomen was soft. Nontender. Nondistended. Positive bowel sounds. No organomegaly or masses. : Redness to the testes with mild tenderness. Ext: Right BKA. Left lower extremity with mild edema and redness extending from the dorsum of the foot to the mid henderson. Neuro: Patient is alert and oriented x4. Cranial nerves 2-12 are intact. Speech is clear. Objective Data Vital Signs Vital Signs: Vital Signs - 24 hr 01/21/24 09:44 01/21/24 11:33 01/21/24 10:00 Temperature 98.2 F Pulse Rate 57 L 55 L 59 L Respiratory Rate 18 Blood Pressure 114/48 L Pulse Oximetry 98 Oxygen Delivery 01/21/24 14:00 01/21/24 12:00 01/21/24 12:00 Temperature Pulse Rate 56 L Respiratory Rate Blood Pressure Pulse Oximetry Oxygen Delivery Room Air Room Air 01/21/24 14:00 01/21/24 15:19 01/21/24 16:00 Temperature 98.6 F Pulse Rate 57 L 57 L Respiratory Rate 20 Blood Pressure 123/47 L Pulse Oximetry 98 Oxygen Delivery Room Air 01/21/24 16:00 01/21/24 18:00 01/21/24 19:42 Temperature Pulse Rate 54 L 53 L 55 L Respiratory Rate Blood Pressure Pulse Oximetry Oxygen Delivery 01/21/24 19:43 01/21/24 20:00 01/22/24 00:00 Temperature 98.4 F Pulse Rate 55 L 57 L 50 L Respiratory Rate 20 16 Blood Pressure 121/39 L Pulse Oximetry 98 97 Oxygen Delivery Room Air 01/22/24 00:00 01/22/24 00:00 01/22/24 02:00 Temperature 98.6 F Pulse Rate 50 L 54 L 51 L Respiratory Rate 16 18 Blood Pressure 119/43 L Pulse Oximetry 97 98 Oxygen Delivery Room Air 01/22/24 04:00 01/22/24 04:00 01/22/24 04:00 Temperature 98.6 F Pulse Rate 50 L 50 L 52 L Respiratory Rate 18 16 Blood Pressure 116/51 L Pulse Oximetry 98 97 Oxygen Delivery Room Air 01/22/24 06:00 01/22/24 08:00 Temperature 98.1 F Pulse Rate 54 L 53 L Respiratory Rate 14 Blood Pressure 118/41 L Pulse Oximetry 98 Oxygen Delivery Intake/Output Intake/Output: Intake & Output 01/19/24 01/20/24 01/21/24 01/22/24 23:59 23:59 23:59 23:59 Intake Total 1650 780 500 Output Total 1700 Balance 1650 -920 500 Meds/Results Medications: Active Medications Generic Name Dose Route Start Last Admin Trade Name Freq PRN Reason Stop Dose Admin Amlodipine Besylate 5 mg 01/21/24 09:00 01/21/24 09:43 Amlodipine Besylate 5 Mg Tablet PO 5 mg DAILY JUDY Administration Aspirin 81 mg 01/21/24 09:00 01/21/24 09:43 Aspirin 81 Mg Enteric Tablet PO 81 mg DAILY JUDY Administration Atorvastatin Calcium 20 mg 01/21/24 09:00 01/21/24 09:43 Atorvastatin 20 Mg Tablet PO 20 mg DAILY JUDY Administration Dextrose 12.5 gm 01/20/24 22:24 Dextrose 50% 25 Gm/50 Ml Syringe IV PUSH PRN PRN Hypoglycemia Protocol Enoxaparin Sodium 30 mg 01/21/24 09:00 01/21/24 09:42 Enoxaparin 30 Mg/0.3 Ml Syringe SUB-Q 30 mg DAILY JUDY Administration Ferrous Sulfate 325 mg 01/21/24 09:00 01/21/24 17:12 Ferrous Sulfate [address] BY MOUTH 325 mg BID JUDY Administration Glucagon 1 mg 01/20/24 22:24 Glucagon For Inj 1 Mg Vial IM PRN PRN Hypoglycemia Protocol Glucose 15 gm 01/20/24 22:24 Glucose Oral Gel 15 Gm Of Glucse In 37.5 Gm Tube PO PRN PRN Hypoglycemia Protocol Hydralazine HCl 100 mg 01/21/24 09:00 01/21/24 09:43 Hydralazine Hcl 50 Mg Tablet PO 100 mg DAILY JUDY Administration Cefepime HCl 1 gm in 50 mls @ 100 mls/hr 01/21/24 18:00 01/21/24 17:12 Maxipime 1 Gm/Ns 50 Ml IVPB 100 mls/hr Q24H JUDY Administration Metronidazole 500 mg in 100 mls @ 100 mls/hr 01/21/24 05:00 01/22/24 06:55 Flagyl 500 Mg/Iso Soln 100 Ml IVPB 100 mls/hr Q8HR JUDY Administration Dextrose 1,000 mls @ 100 mls/hr 01/20/24 22:24 Dextrose 5% 1,000 Ml IVPB PRN PRN Hypoglycemia Protocol Insulin Aspart 2 - 5 units 01/21/24 08:00 01/21/24 16:40 Insulin Aspart (*Bkc) 100 Units/Ml SUB-Q Not Given TIDWM JUDY Protocol Insulin Aspart 1 - 2 units 01/21/24 21:00 01/21/24 21:01 Insulin Aspart (*Bkc) 100 Units/Ml SUB-Q Not Given HS UJDY Protocol Miconazole Nitrate 1 applic 01/20/24 21:00 01/21/24 21:42 Miconazole Nitrate 2% Cream 30 Gm Tube TOPICAL 1 applic Q12HR JUDY Administration Multivitamins/Minerals 1 tablet 01/21/24 09:00 01/21/24 09:43 Opti-Gen Tab PO 1 tablet DAILY JUDY Administration Nebivolol 20 mg 01/21/24 09:00 01/21/24 09:44 Nebivolol Hcl 5 Mg Tablet PO 20 mg DAILY JUDY Administration Vancomycin HCl 1 each 01/20/24 21:07 Vancomycin For Acute Kidney Injury IVPB PRN PRN Vancomycin Protocol Vitamin D 2,000 units 01/21/24 09:00 01/21/24 09:43 Cholecalciferol 1,000 Units Tablet PO 2,000 units DAILY JUDY Administration Radiology Results: ITS Impressions Ankle X-Ray 01/20/24 14:29 IMPRESSION: 1. Mild midfoot osteoarthritis. Foot X-Ray 01/20/24 14:29 IMPRESSION: 1. Mild polyarticular osteoarthritis. Venous Doppler Study 01/20/24 17:19 IMPRESSION: 1. No deep venous thrombosis in the left lower limb. Scrotum Ultrasound 01/20/24 17:21 IMPRESSION: 1. Diffuse scrotal edema and moderate-sized right and minimal left hydroceles. Normal testes and epididymides. Lower Extremity CT 01/20/24 18:18 IMPRESSION: Marked scrotal edema. Diffuse left lower extremity subcutaneous stranding and fluid, most pronounced over the lateral thigh, lateral lower leg, and dorsum of the foot, may represent edema or cellulitis. Pelvis CT 01/20/24 18:18 IMPRESSION: Marked scrotal edema. Diffuse left lower extremity subcutaneous stranding and fluid, most pronounced over the lateral thigh, lateral lower leg, and dorsum of the foot, may represent edema or cellulitis. Labs Labs: Laboratory Results - last 24 hr 01/21/24 01/21/24 01/21/24 11:22 16:15 19:57 WBC RBC Hgb Hct MCV MCH MCHC RDW Plt Count MPV Immature Gran % (Auto) Neut % (Auto) Lymph % (Auto) [place] % (Auto) Eos % (Auto) Baso % (Auto) Lymph # (Auto) [place] # (Auto) Eos # (Auto) Baso # (Auto) Abs Immat Gran (auto) Absolute Neuts (auto) Absolute Nucleated RBC Nucleated RBC % Sodium Potassium Chloride Carbon Dioxide Anion Gap BUN Creatinine Estim Creat Clear Calc Estimated GFR Glucose POC Capillary Glucose 120 H 132 H Calcium Total Bilirubin AST ALT Alkaline Phosphatase Total Protein Albumin Vancomycin Trough 10.3 01/21/24 01/22/24 01/22/24 20:08 05:25 08:06 WBC 14.4 H RBC 2.99 L Hgb 8.6 L Hct 27.7 L MCV 92.6 MCH 28.8 MCHC 31.0 L RDW 14.5 Plt Count 229 MPV 8.9 Immature Gran % (Auto) 1.4 H Neut % (Auto) 85.0 H Lymph % (Auto) 4.5 L [place] % (Auto) 8.5 Eos % (Auto) 0.1 Baso % (Auto) 0.5 Lymph # (Auto) 0.65 L [place] # (Auto) 1.2 H Eos # (Auto) 0.0 Baso # (Auto) 0.1 Abs Immat Gran (auto) 0.20 H Absolute Neuts (auto) 12.3 H Absolute Nucleated RBC 0.000 Nucleated RBC % 0.0 Sodium 140 Potassium 3.5 Chloride 111 H Carbon Dioxide 19 L Anion Gap 10 BUN 72 H Creatinine 2.80 H Estim Creat Clear Calc 29 Estimated GFR 22 L Glucose 135 H POC Capillary Glucose 140 H 152 H Calcium 8.7 Total Bilirubin 0.4 AST 28 ALT 25 Alkaline Phosphatase 73 Total Protein 6.0 L Albumin 2.9 L Vancomycin Trough Quality VTE Prophylaxis VTE prophylaxis: pharmacologic ordered
[2024-01-22] MEDS: amLODIPine BESYLATE 5 MG TABLET PO (09:27)
[2024-01-22] MEDS: ASPIRIN 81 MG ENTERIC TABLET PO (09:27)
[2024-01-22] MEDS: OPTI-GEN TAB 1 TABLET PO (09:27)
[2024-01-22] MEDS: ATORVASTATIN 20 MG TABLET PO (09:27)
[2024-01-22] MEDS: NEBIVOLOL HCL 5 MG TABLET 20 MG PO (09:28)
[2024-01-22] MEDS: ENOXAPARIN 30 MG/0.3 ML SYRINGE SUB-Q (09:28)
[2024-01-22] MEDS: hydrALAZINE HCL 50 MG TABLET 100 MG PO (09:28)
[2024-01-22] MEDS: FERROUS SULFATE 325 MG TABLET DR BY MOUTH ×2 (09:28→17:17)
[2024-01-22] MEDS: CHOLECALCIFEROL 1,000 UNITS TABLET 2000 UNITS PO (09:28)
[2024-01-22] MEDS: MICONAZOLE NITRATE 2% CREAM 30 GM TUBE 1 APPLIC TOPICAL ×2 (09:29→21:22)
[2024-01-22 11:44] LABS: Glucose Point of Care 156 mg/dl (65-105)
[2024-01-22] MEDS: SODIUM CHLORIDE 0.9% IV 1,000 ML 999 ML IV CONT (15:12)
[2024-01-22 16:03] LABS: Glucose Point of Care 163 mg/dl (65-105)
[2024-01-22] MEDS: CEFEPIME 1 GM/NS 50 ML 1 GM/50 ML BAG IVPB (17:17)
[2024-01-22 20:41] LABS: Glucose Point of Care 173 mg/dl (65-105)
[2024-01-22 22:46] LABS: Vancomycin Trough 15.4 ug/mL (10.0-20.0)
[2024-01-23] VITALS (7 sets, daily range): BP systolic 122–131; BP diastolic 45–61; PULSE 51–58; RESP 16–18; TEMP 36.7–37.6; O2SAT 97–98
[2024-01-23 05:15] LABS: Basophils Absolute Auto 0.1 K/mm3 (0.0-0.1); Basophils Percent Auto 0.3 % (0.2-1.2); Eosinophils Percent Auto 0.1 % (0-4.4); Hematocrit 27.1 % (42.0-52.0); Hemoglobin 8.7 g/dL (14.0-18.0); Immature Granulocyte Absolute 0.25 K/mm3 (0.00-0.031); Immature Granulocyte Percent A 1.7 % (0-0.5); Lymphocytes Absolute Auto 0.84 K/mm3 (0.9-3.2); Lymphocytes Percent Auto 5.8 % (18.3-44.2); Mean Corpuscular HGB Conc 32.1 g/dl (32-36); Mean Corpuscular Hemoglobin 29.4 pg (26-34); Mean Corpuscular Volume 91.6 fl (80-100); Mean Platelet Volume 8.7 fl (7.4-10.4); Monocytes Absolute Auto 1.2 K/mm3 (0.1-0.6); Neutrophils Absolute Auto 12.2 K/mm3 (1.3-6.7); Neutrophils Percent Auto 84.1 % (45.5-73.1); Platelet Count Result 230 k/mm3 (150-375); Red Blood Count 2.96 M/mm3 (4.6-6.20); Red Cell Distribution Width 14.6 % (11.5-14.5); White Blood Count 14.5 K/mm3 (4.5-10.0)
[2024-01-23 05:26] LABS: Iron 24 ug/dL (49-181)
[2024-01-23 05:28] LABS: Alanine Aminotransferase 22 U/L (6-50); Alkaline Phosphatase 66 U/L (38-126); Anion Gap 14 mmol/L (4-12); Aspartate Amino Transferase 23 U/L (17-59); Bilirubin,Total 0.3 mg/dL (0.2-1.3); Blood Urea Nitrogen 66 mg/dL (9-20); Calcium 8.8 mg/dL (8.4-10.2); Carbon Dioxide 17 mmol/L (22-30); Chloride 113 mmol/L (98-107); Estimated CRCL calculation 33 ml/min; Estimated Glomerular Filt Rate 26; Glucose 118 mg/dL (65-110); Potassium 3.5 mmol/L (3.4-5.0); Sodium 144 mmol/L (137-145)
[2024-01-23] MEDS: metroNIDAZOLE 500 MG/ISO 100ML 500 MG/100 ML BAG 100 MG IVPB (06:32)
[2024-01-23] MEDS: VANCOMYCIN 1,500 MG/NS 500 ML 1,500 MG/500 ML BAG 250 MG IVPB (06:32)
[2024-01-23 06:34] LABS: Percent Iron Saturation 15 % (20-50)
[2024-01-23 06:45] LABS: Folic Acid > 20.0 ng/mL (2.76->20)
--- NOTE | 2024-01-23 07:46 | PM.IMPN ---
Progress Note: A&P Assessment and Plan (1) Cellulitis of left leg without foot: Code(s): L03.116 - Cellulitis of left lower limb Status: Acute Assessment and Plan: Pain of the left lower extremity with associated edema no obvious area of erythema of the left lower extremity no open wounds, however given the degree of patient's pain could be underlying infection of ankle or knee joint. However the joints themselves also do not appear overtly erythematous which increases suspicious for acute gouty event. 01/22: Patients lower extremity redness has worsening and he notes increased pain. Edema remains the same. Spoke with ID pharm and will transition to PO linezolid, increase cefepime and DC flagyl on 01/22. - Ankle XR: mild midfoot OA - Foot XR: mild polyarticular OA - Lower extremity/ pelvis CT: Marked scrotal edema. Diffuse left lower extremity subcutaneous stranding and fluid, most pronounced over the lateral thigh, lateral lower leg, and dorsum of the foot, may represent edema or cellulitis. - Antibiotics: Vanc, cefe, flagyl started on 01/19. Spoke with ID pharm and will transition to PO linezolid, increase cefepime and DC flagyl on 01/22. - CRP ordered - If symptoms do not improve tomorrow Will consider getting another image done to re-evaluate infection. - Blood cultures obtained on 01/19: NGTD - Monitor vital signs, I&Os, neuro status and patient is a fall risk - Monitor serum electrolytes, CBC, cultures, WBC and temp curve (2) Cellulitis, scrotum: Code(s): N49.2 - Inflammatory disorders of scrotum Status: Acute Assessment and Plan: The patient does have some significant erythema and swelling to the scrotum and some slightly increased warmth. - Ultrasound of scrotum did not indicate any localizing abscess or infection. Diffuse scrotal edema and moderate-sized right and minimal left hydroceles. Normal testes and epididymides. - Lower extremity/ pelvis CT: Marked scrotal edema. Diffuse left lower extremity subcutaneous stranding and fluid, most pronounced over the lateral thigh, lateral lower leg, and dorsum of the foot, may represent edema or cellulitis. - Antibiotics: Vanc, cefe, flagyl started on 01/19 - Blood cultures obtained on 01/19: NGTD - Monitor vital signs, I&Os, neuro status and patient is a fall risk - Monitor serum electrolytes, CBC, cultures, WBC and temp curve (3) Acute kidney injury superimposed on CKD: Code(s): N17.9 - Acute kidney failure, unspecified; N18.9 - Chronic kidney disease, unspecified Status: Acute Assessment and Plan: BUN/Cr 81/3.4 with GFR 18 on admission. Likely due to dehydration secondary to decreased oral intake with use of lasix and jardiance. Received 1 L fluid bolus in the ED. Baseline appears to be 1.8-2.2. Follows DR. Metz. - BUN/Cr 66/2.5 with GFR 26 on am labs - Urine output back to WNL - IV NS 1L bolus x 1 given 01/21 - Renally dose medications - Avoid nephrotoxic medications - Hold lasix and farxiga (4) Anemia of chronic disease: Code(s): D63.8 - Anemia in other chronic diseases classified elsewhere Status: Acute Assessment and Plan: Hemoglobin was down 1 g compared to values from the last several months on admission. Possibly due to acute on chronic kidney injury. No obvious signs of bleeding. - H/H 8.6/27.7 - Iron panel: iron 24, TIBC 156, % sat 15 - B12/folate WNL - Venofer 300 mg IV x1 on 01/22, will transition to oral iron supplements tomorrow - Monitor (5) Diabetes: Qualifiers: Chronic kidney disease stage: stage 3 (moderate) Chronic kidney disease stage 3 subtype: stage 3a (GFR 45-59) Diabetes mellitus complication detail: with chronic kidney disease Diabetes mellitus complication status: with kidney complications Diabetes mellitus penitentiary insulin use: without penitentiary use Diabetes mellitus type: type 2 Qualified Code(s): E11.22 - Type 2 diabetes mellitus with diabetic chronic kidney disease; N18.31 - Chronic kidney disease, stage 3a Code(s): E11.9 - Type 2 diabetes mellitus without complications Status: Acute Assessment and Plan: - hypoglycemia protocol - POC blood glucose ACHS - home medication - Jardiance - correct regimen ordered - Patient's oral hypoglycemic agent are on hold due to acute kidney injury. Started on low dose TIDWM and HS - A1C 6.8 (6) Elevated troponin: Code(s): R79.89 - Other specified abnormal findings of blood chemistry Status: Acute Assessment and Plan: Patient does have elevated troponin but his troponin is completely flat. 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 Patient is pleasant sitting on the side of the bed working with physical therapy. Patients lower extremity redness has worsening and he notes increased pain. Edema remains the same. Spoke with ID pharm and will transition to PO linezolid, increase cefepime and DC flagyl. patient remains afebrile and blood cultures no growth to date. If symptoms do not improve tomorrow we will consider getting another image done to re-evaluate infection. Patient has no other complaints denies chest pain, shortness a breath, nausea/ vomiting, and abdominal pain. Review of Systems Review of Systems: All systems reviewed & are unremarkable except as noted in HPI and below Exam Narrative: AF HR 57 RR 18 SPO2 98 BP 131/61 General: male in no acute respiratory distress who is nontoxic appearing, sitting on side of bed. HEENT: Normocephalic. Atraumatic. Extraocular movement intact. Sclera clear and anicteric. No facial asymmetry. Chest: Lungs are clear to auscultation bilaterally. No wheezes or crackles. CV: Heart was bradycardic with regular rhythm. S1/S2. No murmurs, gallops, or rubs. Abd: Abdomen was soft. Nontender. Nondistended. Positive bowel sounds. No organomegaly or masses. : Improved redness to the testes without tenderness. No edema. Ext: Right BKA. Left lower extremity with 1+ pitting edema and worsening redness extending from the dorsum of the foot to the mid henderson. Pain with palpation. Neuro: Patient is alert and oriented x4. Cranial nerves 2-12 are intact. Speech is clear. Objective Data Vital Signs Vital Signs: Vital Signs - 24 hr 01/22/24 08:00 01/22/24 09:28 01/22/24 10:18 Temperature 98.1 F Pulse Rate 53 L 54 L Respiratory Rate 14 Blood Pressure 118/41 L Pulse Oximetry 98 Oxygen Delivery Room Air 01/22/24 11:34 01/22/24 08:00 01/22/24 15:43 Temperature 98.1 F 98.2 F Pulse Rate 53 L 53 L Respiratory Rate 16 16 Blood Pressure 132/66 131/50 L Pulse Oximetry 99 98 Oxygen Delivery Room Air 01/22/24 08:00 01/22/24 10:00 01/22/24 12:00 Temperature Pulse Rate 54 L 51 L 55 L Respiratory Rate Blood Pressure Pulse Oximetry Oxygen Delivery 01/22/24 14:00 01/22/24 16:00 01/22/24 12:00 Temperature Pulse Rate 50 L 57 L Respiratory Rate Blood Pressure Pulse Oximetry Oxygen Delivery Room Air 01/22/24 19:51 01/22/24 19:53 01/22/24 20:44 Temperature 98.1 F Pulse Rate 51 L 51 L 55 L Respiratory Rate 16 16 Blood Pressure 113/56 L Pulse Oximetry 98 97 Oxygen Delivery Room Air 01/22/24 23:49 01/23/24 04:54 Temperature 97.6 F 98.8 F Pulse Rate 41 L 52 L Respiratory Rate 16 16 Blood Pressure 118/41 L 123/45 L Pulse Oximetry 100 98 Oxygen Delivery Intake/Output Intake/Output: Intake & Output 01/20/24 01/21/24 01/22/24 01/23/24 23:59 23:59 23:59 23:59 Intake Total 6915 182 0057 640 Output Total 1700 1250 800 Balance 1650 -870 1160 -160 Meds/Results Medications: Active Medications Generic Name Dose Route Start Last Admin Trade Name Freq PRN Reason Stop Dose Admin Amlodipine Besylate 5 mg 01/21/24 09:00 01/22/24 09:27 Amlodipine Besylate 5 Mg Tablet PO 5 mg DAILY JUDY Administration Aspirin 81 mg 01/21/24 09:00 01/22/24 09:27 Aspirin 81 Mg Enteric Tablet PO 81 mg DAILY JUDY Administration Atorvastatin Calcium 20 mg 01/21/24 09:00 01/22/24 09:27 Atorvastatin 20 Mg Tablet PO 20 mg DAILY JUDY Administration Dextrose 12.5 gm 01/20/24 22:24 Dextrose 50% 25 Gm/50 Ml Syringe IV PUSH PRN PRN Hypoglycemia Protocol Enoxaparin Sodium 30 mg 01/21/24 09:00 01/22/24 09:28 Enoxaparin 30 Mg/0.3 Ml Syringe SUB-Q 30 mg DAILY JUDY Administration Ferrous Sulfate 325 mg 01/21/24 09:00 01/22/24 17:17 Ferrous Sulfate [address] BY MOUTH 325 mg BID JUDY Administration Glucagon 1 mg 01/20/24 22:24 Glucagon For Inj 1 Mg Vial IM PRN PRN Hypoglycemia Protocol Glucose 15 gm 01/20/24 22:24 Glucose Oral Gel 15 Gm Of Glucse In 37.5 Gm Tube PO PRN PRN Hypoglycemia Protocol Hydralazine HCl 100 mg 01/21/24 09:00 01/22/24 09:28 Hydralazine Hcl 50 Mg Tablet PO 100 mg DAILY JUDY Administration Cefepime HCl 1 gm in 50 mls @ 100 mls/hr 01/21/24 18:00 01/22/24 19:07 Maxipime 1 Gm/Ns 50 Ml IVPB Infused Q24H JUDY Infusion Metronidazole 500 mg in 100 mls @ 100 mls/hr 01/21/24 05:00 01/23/24 06:32 Flagyl 500 Mg/Iso Soln 100 Ml IVPB 100 mls/hr Q8HR JUDY Administration Dextrose 1,000 mls @ 100 mls/hr 01/20/24 22:24 Dextrose 5% 1,000 Ml IVPB PRN PRN Hypoglycemia Protocol Vancomycin HCl 1,500 mg in 500 mls @ 250 mls/hr 01/23/24 06:00 01/23/24 06:32 Vancomycin 1,500 Mg/Ns 500 Ml IVPB 01/23/24 07:59 250 mls/hr ONCE ONE Administration Insulin Aspart 2 - 5 units 01/21/24 08:00 01/22/24 17:09 Insulin Aspart (*Bkc) 100 Units/Ml SUB-Q Not Given TIDWM [facility] Protocol Insulin Aspart 1 - 2 units 01/21/24 21:00 01/22/24 21:22 Insulin Aspart (*Bkc) 100 Units/Ml SUB-Q Not Given HS [facility] Protocol Miconazole Nitrate 1 applic 01/20/24 21:00 01/22/24 21:22 Miconazole Nitrate 2% Cream 30 Gm Tube TOPICAL 1 applic Q12HR JUDY Administration Multivitamins/Minerals 1 tablet 10/30/24 09:00 01/22/24 09:27 Opti-Gen Tab PO 1 tablet DAILY JUDY Administration Nebivolol 20 mg 01/21/24 09:00 01/22/24 09:28 Nebivolol Hcl 5 Mg Tablet PO 20 mg DAILY JUDY Administration Vancomycin HCl 1 each 01/20/24 21:07 Vancomycin For Acute Kidney Injury IVPB PRN PRN Vancomycin Protocol Vitamin D 2,000 units 01/21/24 09:00 01/22/24 09:28 Cholecalciferol 1,000 Units Tablet PO 2,000 units DAILY JUDY Administration Radiology Results: ITS Impressions Ankle X-Ray 01/20/24 14:29 IMPRESSION: 1. Mild midfoot osteoarthritis. Foot X-Ray 01/20/24 14:29 IMPRESSION: 1. Mild polyarticular osteoarthritis. Venous Doppler Study 01/20/24 17:19 IMPRESSION: 1. No deep venous thrombosis in the left lower limb. Scrotum Ultrasound 01/20/24 17:21 IMPRESSION: 1. Diffuse scrotal edema and moderate-sized right and minimal left hydroceles. Normal testes and epididymides. Lower Extremity CT 01/20/24 18:18 IMPRESSION: Marked scrotal edema. Diffuse left lower extremity subcutaneous stranding and fluid, most pronounced over the lateral thigh, lateral lower leg, and dorsum of the foot, may represent edema or cellulitis. Pelvis CT 01/20/24 18:18 IMPRESSION: Marked scrotal edema. Diffuse left lower extremity subcutaneous stranding and fluid, most pronounced over the lateral thigh, lateral lower leg, and dorsum of the foot, may represent edema or cellulitis. Labs Labs: Laboratory Results - last 24 hr 01/22/24 01/22/24 01/22/24 08:06 11:33 15:50 WBC RBC Hgb Hct MCV MCH MCHC RDW Plt Count MPV Immature Gran % (Auto) Neut % (Auto) Lymph % (Auto) [place] % (Auto) Eos % (Auto) Baso % (Auto) Lymph # (Auto) [place] # (Auto) Eos # (Auto) Baso # (Auto) Abs Immat Gran (auto) Absolute Neuts (auto) Absolute Nucleated RBC Nucleated RBC % Sodium Potassium Chloride Carbon Dioxide Anion Gap BUN Creatinine Estim Creat Clear Calc Estimated GFR Glucose POC Capillary Glucose 152 H 156 H 163 H Calcium Iron TIBC % Saturation Total Bilirubin AST ALT Alkaline Phosphatase Total Protein Albumin Vitamin B12 Folate Vancomycin Trough 01/22/24 01/22/24 01/23/24 20:26 22:03 05:09 WBC 14.5 H RBC 2.96 L Hgb 8.7 L Hct 27.1 L MCV 91.6 MCH 29.4 MCHC 32.1 RDW 14.6 H Plt Count 230 MPV 8.7 Immature Gran % (Auto) 1.7 H Neut % (Auto) 84.1 H Lymph % (Auto) 5.8 L [place] % (Auto) 8.0 Eos % (Auto) 0.1 Baso % (Auto) 0.3 Lymph # (Auto) 0.84 L [place] # (Auto) 1.2 H Eos # (Auto) 0.0 Baso # (Auto) 0.1 Abs Immat Gran (auto) 0.25 H Absolute Neuts (auto) 12.2 H Absolute Nucleated RBC 0.000 Nucleated RBC % 0.0 Sodium Potassium Chloride Carbon Dioxide Anion Gap BUN Creatinine Estim Creat Clear Calc Estimated GFR Glucose POC Capillary Glucose 173 H Calcium Iron 24 L TIBC 156 L % Saturation 15 L Total Bilirubin AST ALT Alkaline Phosphatase Total Protein Albumin Vitamin B12 Folate Vancomycin Trough 15.4 01/23/24 05:10 WBC RBC Hgb Hct MCV MCH MCHC RDW Plt Count MPV Immature Gran % (Auto) Neut % (Auto) Lymph % (Auto) [place] % (Auto) Eos % (Auto) Baso % (Auto) Lymph # (Auto) [place] # (Auto) Eos # (Auto) Baso # (Auto) Abs Immat Gran (auto) Absolute Neuts (auto) Absolute Nucleated RBC Nucleated RBC % Sodium 144 Potassium 3.5 Chloride 113 H Carbon Dioxide 17 L Anion Gap 14 H BUN 66 H Creatinine 2.50 H Estim Creat Clear Calc 33 Estimated GFR 26 L Glucose 118 H POC Capillary Glucose Calcium 8.8 Iron TIBC % Saturation Total Bilirubin 0.3 AST 23 ALT 22 Alkaline Phosphatase 66 Total Protein 6.0 L Albumin 3.0 L Vitamin B12 840.0 Folate > 20.0 H Vancomycin Trough Quality VTE Prophylaxis VTE prophylaxis: pharmacologic ordered
[2024-01-23 08:00] LABS: Glucose Point of Care 126 mg/dl (65-105)
[2024-01-23] MEDS: NEBIVOLOL HCL 5 MG TABLET 20 MG PO (08:51)
[2024-01-23] MEDS: CHOLECALCIFEROL 1,000 UNITS TABLET 2000 UNITS PO (08:51)
[2024-01-23] MEDS: amLODIPine BESYLATE 5 MG TABLET PO (08:52)
[2024-01-23] MEDS: ASPIRIN 81 MG ENTERIC TABLET PO (08:52)
[2024-01-23] MEDS: hydrALAZINE HCL 50 MG TABLET 100 MG PO (08:52)
[2024-01-23] MEDS: FERROUS SULFATE 325 MG TABLET DR BY MOUTH ×2 (08:52→17:27)
[2024-01-23] MEDS: MICONAZOLE NITRATE 2% CREAM 30 GM TUBE 1 APPLIC TOPICAL ×2 (08:52→21:39)
[2024-01-23] MEDS: ENOXAPARIN 30 MG/0.3 ML SYRINGE SUB-Q (08:52)
[2024-01-23] MEDS: ATORVASTATIN 20 MG TABLET PO (08:52)
[2024-01-23] MEDS: OPTI-GEN TAB 1 TABLET PO (08:52)
[2024-01-23] MEDS: IRON SUCROSE COMPLEX 200 MG, IRON SUCROSE COMPLEX 100 MG in SODIUM CHLORIDE 0.9% IV 250 ML 176.67 MG IVPB (08:57)
[2024-01-23 11:58] LABS: Glucose Point of Care 157 mg/dl (65-105)
[2024-01-23] MEDS: CEFEPIME 1 GM/NS 50 ML 1 GM/50 ML BAG IVPB ×2 (13:42→20:31)
[2024-01-23 16:20] LABS: CRP 21.2 mg/dL (<1.0)
[2024-01-23 16:39] LABS: Glucose Point of Care 143 mg/dl (65-105)
[2024-01-23] MEDS: LINEZOLID 600 MG TABLET PO (20:30)
[2024-01-23 20:36] LABS: Glucose Point of Care 154 mg/dl (65-105)
[2024-01-24] VITALS (9 sets, daily range): BP systolic 133–144; BP diastolic 49–54; PULSE 51–57; RESP 16–18; TEMP 36.6–36.8; O2SAT 97–99
[2024-01-24 04:56] LABS: Basophils Absolute Auto 0.1 K/mm3 (0.0-0.1); Basophils Percent Auto 0.4 % (0.2-1.2); Eosinophils Percent Auto 0.1 % (0-4.4); Hematocrit 28.2 % (42.0-52.0); Hemoglobin 8.8 g/dL (14.0-18.0); Immature Granulocyte Absolute 0.28 K/mm3 (0.00-0.031); Immature Granulocyte Percent A 1.7 % (0-0.5); Lymphocytes Absolute Auto 0.76 K/mm3 (0.9-3.2); Lymphocytes Percent Auto 4.7 % (18.3-44.2); Mean Corpuscular HGB Conc 31.2 g/dl (32-36); Mean Corpuscular Hemoglobin 29.1 pg (26-34); Mean Corpuscular Volume 93.4 fl (80-100); Mean Platelet Volume 9.1 fl (7.4-10.4); Monocytes Absolute Auto 1.1 K/mm3 (0.1-0.6); Monocytes Percent Auto 6.5 % (2.6-8.5); Neutrophils Absolute Auto 13.9 K/mm3 (1.3-6.7); Neutrophils Percent Auto 86.6 % (45.5-73.1); Platelet Count Result 250 k/mm3 (150-375); Red Blood Count 3.02 M/mm3 (4.6-6.20); Red Cell Distribution Width 14.8 % (11.5-14.5); White Blood Count 16.1 K/mm3 (4.5-10.0)
[2024-01-24 05:14] LABS: Alanine Aminotransferase 18 U/L (6-50); Albumin Level 2.8 g/dL (3.5-5.1); Alkaline Phosphatase 63 U/L (38-126); Anion Gap 8 mmol/L (4-12); Aspartate Amino Transferase 21 U/L (17-59); Bilirubin,Total 0.3 mg/dL (0.2-1.3); Blood Urea Nitrogen 58 mg/dL (9-20); Calcium 8.8 mg/dL (8.4-10.2); Carbon Dioxide 19 mmol/L (22-30); Chloride 115 mmol/L (98-107); Estimated CRCL calculation 36 ml/min; Estimated Glomerular Filt Rate 28; Glucose 129 mg/dL (65-110); Potassium 3.5 mmol/L (3.4-5.0); Sodium 142 mmol/L (137-145)
--- NOTE | 2024-01-24 07:49 | PM.IMPN ---
Progress Note: A&P Assessment and Plan (1) Cellulitis of left leg without foot: Code(s): L03.116 - Cellulitis of left lower limb Status: Acute Assessment and Plan: Pain of the left lower extremity with associated edema no obvious area of erythema of the left lower extremity no open wounds, however given the degree of patient's pain could be underlying infection of ankle or knee joint. However the joints themselves also do not appear overtly erythematous which increases suspicious for acute gouty event. 01/22: Patients lower extremity redness has worsening and he notes increased pain. Edema remains the same. Spoke with ID pharm and will transition to PO linezolid, increase cefepime and DC flagyl on 01/22. - Ankle XR: mild midfoot OA - Foot XR: mild polyarticular OA - Lower extremity/ pelvis CT: Marked scrotal edema. Diffuse left lower extremity subcutaneous stranding and fluid, most pronounced over the lateral thigh, lateral lower leg, and dorsum of the foot, may represent edema or cellulitis. - Antibiotics: Vanc, cefe, flagyl started on 01/19. Spoke with ID pharm and will transition to PO linezolid, increase cefepime and DC flagyl on 01/22. - CRP 01/19 32.6, repeat 01/22 21.2 - Blood cultures obtained on 01/19: NGTD - Monitor vital signs, I&Os, neuro status and patient is a fall risk - Monitor serum electrolytes, CBC, cultures, WBC and temp curve 01/23: Left lower extremity with 1+ pitting edema and worsening redness extending from the dorsum of the foot to the mid henderson in pretibial region with increase pain. Amputation of left 3rd toe. - Due to possible vascular disease contributing will obtain an KEISHA, unable to get CTA leg 2/2 to kidney disease - WBC continues to worsen despite abx, will re CT to ensure no new abscess formation (2) Cellulitis, scrotum: Code(s): N49.2 - Inflammatory disorders of scrotum Status: Acute Assessment and Plan: The patient does have some significant erythema and swelling to the scrotum and some slightly increased warmth. - Ultrasound of scrotum did not indicate any localizing abscess or infection. Diffuse scrotal edema and moderate-sized right and minimal left hydroceles. Normal testes and epididymides. - Lower extremity/ pelvis CT: Marked scrotal edema. Diffuse left lower extremity subcutaneous stranding and fluid, most pronounced over the lateral thigh, lateral lower leg, and dorsum of the foot, may represent edema or cellulitis. - Antibiotics as above - Blood cultures obtained on 01/19: NGTD - Monitor vital signs, I&Os, neuro status and patient is a fall risk - Monitor serum electrolytes, CBC, cultures, WBC and temp curve (3) Acute kidney injury superimposed on CKD: Code(s): N17.9 - Acute kidney failure, unspecified; N18.9 - Chronic kidney disease, unspecified Status: Acute Assessment and Plan: BUN/Cr 81/3.4 with GFR 18 on admission. Likely due to dehydration secondary to decreased oral intake with use of lasix and jardiance. Received 1 L fluid bolus in the ED. Baseline appears to be 1.8-2.2. Follows DR. Metz. - BUN/Cr 58/2.3 with GFR 28 on am labs - Urine output back to WNL - IV NS 1L bolus x 1 given 01/21 - Renally dose medications - Avoid nephrotoxic medications - Hold lasix and farxiga (4) Anemia of chronic disease: Code(s): D63.8 - Anemia in other chronic diseases classified elsewhere Status: Acute Assessment and Plan: Hemoglobin was down 1 g compared to values from the last several months on admission. Possibly due to acute on chronic kidney injury. No obvious signs of bleeding. - H/H 8.8/28.2 on am labs - Iron panel: iron 24, TIBC 156, % sat 15 - B12/folate WNL - Venofer 300 mg IV x1 on 01/22, will transition to oral iron supplements tomorrow - Monitor (5) Diabetes: Qualifiers: Chronic kidney disease stage: stage 3 (moderate) Chronic kidney disease stage 3 subtype: stage 3a (GFR 45-59) Diabetes mellitus complication detail: with chronic kidney disease Diabetes mellitus complication status: with kidney complications Diabetes mellitus longterm insulin use: without superintendent [employer] use Diabetes mellitus type: type 2 Qualified Code(s): E11.22 - Type 2 diabetes mellitus with diabetic chronic kidney disease; N18.31 - Chronic kidney disease, stage 3a Code(s): E11.9 - Type 2 diabetes mellitus without complications Status: Acute Assessment and Plan: - hypoglycemia protocol - POC blood glucose ACHS - home medication - Jardiance - correct regimen ordered - Patient's oral hypoglycemic agent are on hold due to acute kidney injury. Started on low dose TIDWM and HS - A1C 6.8 (6) Elevated troponin: Code(s): R79.89 - Other specified abnormal findings of blood chemistry Status: Acute Assessment and Plan: Patient does have elevated troponin but his troponin is completely flat. 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 Patient is pleasant sitting up comfortably in his chair. He continues to endorse pain to the left lower extremity that is worsened with pressure. Discussed patient's right BKA to which he states is from 13 years ago when he had a DVT and was treated with warfarin though he still required a BKA and is unsure why. He also has a left 3rd toe amputation from several years ago that he believes was due to poor circulation. Patient denies a history of vascular disease. Discussed patient with Dr. Morgan and will obtain an KEISHA to further evaluate. Due to patients worsening WBC and symptoms will reimage his leg to reevaluate. Patient has no other complaints, denying chest pain, shortness of breath, nausea/vomiting and abdominal pain. Review of Systems Review of Systems: All systems reviewed & are unremarkable except as noted in HPI and below Exam Narrative: AF HR 56 RR 16 Spo2 99 BP 133.54 General: male in no acute respiratory distress who is nontoxic appearing, sitting up in his chair. HEENT: Normocephalic. Atraumatic. Extraocular movement intact. Sclera clear and anicteric. No facial asymmetry. Chest: Lungs are clear to auscultation bilaterally. No wheezes or crackles. CV: Heart was bradycardic with regular rhythm. S1/S2. No murmurs, gallops, or rubs. Abd: Abdomen was soft. Nontender. Nondistended. Positive bowel sounds. No organomegaly or masses. : Improved redness to the testes without tenderness. No edema. Ext: Right BKA. Left lower extremity with 1+ pitting edema and worsening redness extending from the dorsum of the foot to the mid henderson in pretibial region with increase pain. Amputation of left 3rd toe. Neuro: Patient is alert and oriented x4. Cranial nerves 2-12 are intact. Speech is clear. Objective Data Vital Signs Vital Signs: Vital Signs - 24 hr 01/23/24 08:00 01/23/24 08:51 01/23/24 08:00 Temperature 98.1 F Pulse Rate 57 L 58 L Respiratory Rate 18 Blood Pressure 131/61 Pulse Oximetry 98 Oxygen Delivery Room Air 01/23/24 08:00 01/23/24 12:00 01/23/24 16:00 Temperature Pulse Rate 53 L 56 L 58 L Respiratory Rate Blood Pressure Pulse Oximetry Oxygen Delivery 01/23/24 16:00 01/23/24 20:00 01/23/24 20:00 Temperature 99.6 F Pulse Rate 55 L 51 L Respiratory Rate 18 Blood Pressure 125/51 L Pulse Oximetry 97 Oxygen Delivery Room Air 01/23/24 23:53 01/24/24 00:00 01/24/24 04:00 Temperature 98.9 F Pulse Rate 52 L 51 L 56 L Respiratory Rate 18 Blood Pressure 122/46 L Pulse Oximetry 98 Oxygen Delivery Intake/Output Intake/Output: Intake & Output 01/21/24 01/22/24 01/23/24 01/24/24 23:59 23:59 23:59 23:59 Intake Total 830 2410 1845 1000 Output Total 1700 1250 2625 850 Balance -870 1160 -780 150 Meds/Results Medications: Active Medications Generic Name Dose Route Start Last Admin Trade Name Freq PRN Reason Stop Dose Admin Amlodipine Besylate 5 mg 01/21/24 09:00 01/23/24 08:52 Amlodipine Besylate 5 Mg Tablet PO 5 mg DAILY JUDY Administration Aspirin 81 mg 01/21/24 09:00 01/23/24 08:52 Aspirin 81 Mg Enteric Tablet PO 81 mg DAILY JUDY Administration Atorvastatin Calcium 20 mg 01/21/24 09:00 01/23/24 08:52 Atorvastatin 20 Mg Tablet PO 20 mg DAILY JUDY Administration Dextrose 12.5 gm 01/20/24 22:24 Dextrose 50% 25 Gm/50 Ml Syringe IV PUSH PRN PRN Hypoglycemia Protocol Enoxaparin Sodium 30 mg 01/21/24 09:00 01/23/24 08:52 Enoxaparin 30 Mg/0.3 Ml Syringe SUB-Q 30 mg DAILY JUDY Administration Ferrous Sulfate 325 mg 01/21/24 09:00 01/23/24 17:27 Ferrous Sulfate [address] BY MOUTH 325 mg BID JUDY Administration Glucagon 1 mg 01/20/24 22:24 Glucagon For Inj 1 Mg Vial IM PRN PRN Hypoglycemia Protocol Glucose 15 gm 01/20/24 22:24 Glucose Oral Gel 15 Gm Of Glucse In 37.5 Gm Tube PO PRN PRN Hypoglycemia Protocol Hydralazine HCl 100 mg 01/21/24 09:00 01/23/24 08:52 Hydralazine Hcl 50 Mg Tablet PO 100 mg DAILY JUDY Administration Dextrose 1,000 mls @ 100 mls/hr 01/20/24 22:24 Dextrose 5% 1,000 Ml IVPB PRN PRN Hypoglycemia Protocol Cefepime HCl 1 gm in 50 mls @ 100 mls/hr 01/23/24 13:00 01/23/24 21:02 Maxipime 1 Gm/Ns 50 Ml IVPB Infused Q12HR JUDY Infusion Insulin Aspart 2 - 5 units 01/21/24 08:00 01/23/24 17:27 Insulin Aspart (*Bkc) 100 Units/Ml SUB-Q Not Given TIDWM [facility] Protocol Insulin Aspart 1 - 2 units 01/21/24 21:00 01/23/24 20:30 Insulin Aspart (*Bkc) 100 Units/Ml SUB-Q Not Given HS [facility] Protocol Linezolid 600 mg 01/23/24 21:00 01/23/24 20:30 Linezolid 600 Mg Tablet PO 600 mg Q12HR JUDY Administration Miconazole Nitrate 1 applic 01/20/24 21:00 01/23/24 21:39 Miconazole Nitrate 2% Cream 30 Gm Tube TOPICAL 1 applic Q12HR JUDY Administration Multivitamins/Minerals 1 tablet 01/21/24 09:00 01/23/24 08:52 Opti-Gen Tab PO 1 tablet DAILY JUDY Administration Nebivolol 20 mg 01/21/24 09:00 01/23/24 08:51 Nebivolol Hcl 5 Mg Tablet PO 20 mg DAILY JUDY Administration Vitamin D 2,000 units 01/21/24 09:00 01/23/24 08:51 Cholecalciferol 1,000 Units Tablet PO 2,000 units DAILY JUDY Administration Radiology Results: ITS Impressions Ankle X-Ray 01/20/24 14:29 IMPRESSION: 1. Mild midfoot osteoarthritis. Foot X-Ray 01/20/24 14:29 IMPRESSION: 1. Mild polyarticular osteoarthritis. Venous Doppler Study 01/20/24 17:19 IMPRESSION: 1. No deep venous thrombosis in the left lower limb. Scrotum Ultrasound 01/20/24 17:21 IMPRESSION: 1. Diffuse scrotal edema and moderate-sized right and minimal left hydroceles. Normal testes and epididymides. Lower Extremity CT 01/20/24 18:18 IMPRESSION: Marked scrotal edema. Diffuse left lower extremity subcutaneous stranding and fluid, most pronounced over the lateral thigh, lateral lower leg, and dorsum of the foot, may represent edema or cellulitis. Pelvis CT 01/20/24 18:18 IMPRESSION: Marked scrotal edema. Diffuse left lower extremity subcutaneous stranding and fluid, most pronounced over the lateral thigh, lateral lower leg, and dorsum of the foot, may represent edema or cellulitis. Labs Labs: Laboratory Results - last 24 hr 01/23/24 01/23/24 01/23/24 05:09 07:49 11:52 WBC RBC Hgb Hct MCV MCH MCHC RDW Plt Count MPV Immature Gran % (Auto) Neut % (Auto) Lymph % (Auto) [place] % (Auto) Eos % (Auto) Baso % (Auto) Lymph # (Auto) [place] # (Auto) Eos # (Auto) Baso # (Auto) Abs Immat Gran (auto) Absolute Neuts (auto) Absolute Nucleated RBC Nucleated RBC % Sodium Potassium Chloride Carbon Dioxide Anion Gap BUN Creatinine Estim Creat Clear Calc Estimated GFR Glucose POC Capillary Glucose 126 H 157 H Calcium Total Bilirubin AST ALT Alkaline Phosphatase C-Reactive Protein 21.2 H Total Protein Albumin 01/23/24 01/23/24 01/24/24 16:36 20:29 04:42 WBC 16.1 H RBC 3.02 L Hgb 8.8 L Hct 28.2 L MCV 93.4 MCH 29.1 MCHC 31.2 L RDW 14.8 H Plt Count 250 MPV 9.1 Immature Gran % (Auto) 1.7 H Neut % (Auto) 86.6 H Lymph % (Auto) 4.7 L [place] % (Auto) 6.5 Eos % (Auto) 0.1 Baso % (Auto) 0.4 Lymph # (Auto) 0.76 L [place] # (Auto) 1.1 H Eos # (Auto) 0.0 Baso # (Auto) 0.1 Abs Immat Gran (auto) 0.28 H Absolute Neuts (auto) 13.9 H Absolute Nucleated RBC 0.000 Nucleated RBC % 0.0 Sodium 142 Potassium 3.5 Chloride 115 H Carbon Dioxide 19 L Anion Gap 8 BUN 58 H Creatinine 2.30 H Estim Creat Clear Calc 36 Estimated GFR 28 L Glucose 129 H POC Capillary Glucose 143 H 154 H Calcium 8.8 Total Bilirubin 0.3 AST 21 ALT 18 Alkaline Phosphatase 63 C-Reactive Protein Total Protein 6.0 L Albumin 2.8 L Quality VTE Prophylaxis VTE prophylaxis: pharmacologic ordered
[2024-01-24 08:04] LABS: Glucose Point of Care 135 mg/dl (65-105)
[2024-01-24] MEDS: LINEZOLID 600 MG TABLET PO ×2 (09:05→21:14)
[2024-01-24] MEDS: NEBIVOLOL HCL 5 MG TABLET 20 MG PO (09:05)
[2024-01-24] MEDS: OPTI-GEN TAB 1 TABLET PO (09:05)
[2024-01-24] MEDS: hydrALAZINE HCL 50 MG TABLET 100 MG PO (09:06)
[2024-01-24] MEDS: ENOXAPARIN 30 MG/0.3 ML SYRINGE SUB-Q (09:06)
[2024-01-24] MEDS: FERROUS SULFATE 325 MG TABLET DR BY MOUTH ×2 (09:06→16:58)
[2024-01-24] MEDS: CHOLECALCIFEROL 1,000 UNITS TABLET 2000 UNITS PO (09:07)
[2024-01-24] MEDS: ATORVASTATIN 20 MG TABLET PO (09:07)
[2024-01-24] MEDS: ASPIRIN 81 MG ENTERIC TABLET PO (09:07)
[2024-01-24] MEDS: CEFEPIME 1 GM/NS 50 ML 1 GM/50 ML BAG IVPB ×2 (09:07→21:14)
[2024-01-24] MEDS: amLODIPine BESYLATE 5 MG TABLET PO (09:07)
[2024-01-24] MEDS: MICONAZOLE NITRATE 2% CREAM 30 GM TUBE 1 APPLIC TOPICAL ×2 (09:14→21:16)
--- NOTE | 2024-01-24 11:32 | PC.NURSE ---
This patient, Amish Richter, was transferred to [facility] on 01/24/24 at 1122. Personal belongings sent with patient. Report given to Janeth JUDD. Appropriate documentation sent with patient.
[2024-01-24 12:12] LABS: Glucose Point of Care 152 mg/dl (65-105)
--- NOTE | 2024-01-24 12:36 | PC.NURSE ---
This patient, Amish Richter, was received from IMU on 01/24/24 at 1236. Patient/family oriented to unit policies and routines. report received from Deepti
[2024-01-24 16:42] LABS: Glucose Point of Care 125 mg/dl (65-105)
[2024-01-24] MEDS: MORPHINE SULFATE (*CRX) 4 MG/ML INJ IV PUSH (16:59)
--- NOTE | 2024-01-24 17:11 | PC.NURSE ---
pt taken down for CT/ ultrasound
--- NOTE | 2024-01-24 18:31 | PC.NURSE ---
pt returned from CT/ultrasound
[2024-01-24 20:23] LABS: Glucose Point of Care 139 mg/dl (65-105)
[2024-01-25] VITALS (8 sets, daily range): BP systolic 121–134; BP diastolic 47–60; PULSE 46–82; RESP 16–18; TEMP 36.4–36.7; O2SAT 97–100
--- NOTE | 2024-01-25 01:59 | PC.NURSE ---
Daylight Savings Time For Daylight Savings Time Ending in the Fall - Clocks are moved back. For Daylight Savings Time Beginning in the Spring - Clocks are moved ahead. For [facility], the time of change occurs at 0200 hrs. Time is taken from the medical observer. This entry on the patient's chart recognizes the change in time reflected during documentation. Example: 2 entries for vital signs may be charted for 0200 hrs.
[2024-01-25 05:52] LABS: Basophils Absolute Auto 0.1 K/mm3 (0.0-0.1); Basophils Percent Auto 0.3 % (0.2-1.2); Hematocrit 29.3 % (42.0-52.0); Hemoglobin 9.1 g/dL (14.0-18.0); Immature Granulocyte Absolute 0.22 K/mm3 (0.00-0.031); Immature Granulocyte Percent A 1.2 % (0-0.5); Lymphocytes Absolute Auto 0.71 K/mm3 (0.9-3.2); Lymphocytes Percent Auto 3.8 % (18.3-44.2); Mean Corpuscular HGB Conc 31.1 g/dl (32-36); Mean Corpuscular Volume 93.3 fl (80-100); Monocytes Absolute Auto 1.1 K/mm3 (0.1-0.6); Neutrophils Absolute Auto 16.7 K/mm3 (1.3-6.7); Neutrophils Percent Auto 88.7 % (45.5-73.1); Nucleated Red Blood Cells Perc 0.1 % (0.0-0.2); Platelet Count Result 274 k/mm3 (150-375); Red Blood Count 3.14 M/mm3 (4.6-6.20); White Blood Count 18.9 K/mm3 (4.5-10.0)
[2024-01-25 06:09] LABS: Alanine Aminotransferase 33 U/L (6-50); Albumin Level 3.1 g/dL (3.5-5.1); Alkaline Phosphatase 193 U/L (38-126); Anion Gap 12 mmol/L (4-12); Aspartate Amino Transferase 45 U/L (17-59); Bilirubin,Total 0.3 mg/dL (0.2-1.3); Blood Urea Nitrogen 52 mg/dL (9-20); Carbon Dioxide 18 mmol/L (22-30); Chloride 113 mmol/L (98-107); Estimated CRCL calculation 41 ml/min; Estimated Glomerular Filt Rate 33; Glucose 102 mg/dL (65-110); Potassium 3.6 mmol/L (3.4-5.0); Sodium 143 mmol/L (137-145)
--- NOTE | 2024-01-25 06:53 | P.PNIM_ITS ---
Progress Note: A&P Assessment and Plan (1) Cellulitis of left leg without foot: Code(s): L03.116 - Cellulitis of left lower limb Status: Acute Assessment and Plan: Pain of the left lower extremity with associated edema no obvious area of erythema of the left lower extremity no open wounds, however given the degree of patient's pain could be underlying infection of ankle or knee joint. However the joints themselves also do not appear overtly erythematous which increases suspicious for acute gouty event. 01/22: Patients lower extremity redness has worsening and he notes increased pain. Edema remains the same. Spoke with ID pharm and will transition to PO linezolid, increase cefepime and DC flagyl on 01/22. - Ankle XR: mild midfoot OA - Foot XR: mild polyarticular OA - Lower extremity/ pelvis CT: Marked scrotal edema. Diffuse left lower extremity subcutaneous stranding and fluid, most pronounced over the lateral thigh, lateral lower leg, and dorsum of the foot, may represent edema or cellulitis. - Antibiotics: Vanc, cefe, flagyl started on 01/19. Spoke with ID pharm and will transition to PO linezolid, increase cefepime and DC flagyl on 01/22. - CRP 01/19 32.6, repeat 01/22 21.2 - Blood cultures obtained on 01/19: NGTD - Monitor vital signs, I&Os, neuro status and patient is a fall risk - Monitor serum electrolytes, CBC, cultures, WBC and temp curve 01/23: Left lower extremity with 1+ pitting edema and worsening redness extending from the dorsum of the foot to the mid henderson in pretibial region with increase pain. Amputation of left 3rd toe. - Due to possible vascular disease contributing will obtain an KEISHA, unable to get CTA leg 2/2 to kidney disease - WBC continues to worsen despite abx, will re CT to ensure no new abscess formation (2) Cellulitis, scrotum: Code(s): N49.2 - Inflammatory disorders of scrotum Status: Acute Assessment and Plan: The patient does have some significant erythema and swelling to the scrotum and some slightly increased warmth. - Ultrasound of scrotum did not indicate any localizing abscess or infection. Diffuse scrotal edema and moderate-sized right and minimal left hydroceles. Normal testes and epididymides. - Lower extremity/ pelvis CT: Marked scrotal edema. Diffuse left lower extremity subcutaneous stranding and fluid, most pronounced over the lateral thigh, lateral lower leg, and dorsum of the foot, may represent edema or cellulitis. - Antibiotics as above - Blood cultures obtained on 01/19: NGTD - Monitor vital signs, I&Os, neuro status and patient is a fall risk - Monitor serum electrolytes, CBC, cultures, WBC and temp curve (3) Acute kidney injury superimposed on CKD: Code(s): N17.9 - Acute kidney failure, unspecified; N18.9 - Chronic kidney disease, unspecified Status: Acute Assessment and Plan: BUN/Cr 81/3.4 with GFR 18 on admission. Likely due to dehydration secondary to decreased oral intake with use of lasix and jardiance. Received 1 L fluid bolus in the ED. Baseline appears to be 1.8-2.2. Follows DR. Metz. - BUN/Cr 58/2.3 with GFR 28 on am labs - Urine output back to WNL - IV NS 1L bolus x 1 given 01/21 - Renally dose medications - Avoid nephrotoxic medications - Hold lasix and farxiga (4) Anemia of chronic disease: Code(s): D63.8 - Anemia in other chronic diseases classified elsewhere Status: Acute Assessment and Plan: Hemoglobin was down 1 g compared to values from the last several months on admission. Possibly due to acute on chronic kidney injury. No obvious signs of bleeding. - H/H 8.8/28.2 on am labs - Iron panel: iron 24, TIBC 156, % sat 15 - B12/folate WNL - Venofer 300 mg IV x1 on 01/22, will transition to oral iron supplements tomorrow - Monitor (5) Diabetes: Qualifiers: Chronic kidney disease stage: stage 3 (moderate) Chronic kidney disease stage 3 subtype: stage 3a (GFR 45-59) Diabetes mellitus complication detail: with chronic kidney disease Diabetes mellitus complication status: with kidney complications Diabetes mellitus retirement insulin use: without rn long term care use Diabetes mellitus type: type 2 Qualified Code(s): E11.22 - Type 2 diabetes mellitus with diabetic chronic kidney disease; N18.31 - Chronic kidney disease, stage 3a Code(s): E11.9 - Type 2 diabetes mellitus without complications Status: Acute Assessment and Plan: - hypoglycemia protocol - POC blood glucose ACHS - home medication - Jardiance - correct regimen ordered - Patient's oral hypoglycemic agent are on hold due to acute kidney injury. Started on low dose TIDWM and HS - A1C 6.8 (6) Elevated troponin: Code(s): R79.89 - Other specified abnormal findings of blood chemistry Status: Acute Assessment and Plan: Patient does have elevated troponin but his troponin is completely flat. 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 Accepted by hospitalist, Dr. Florez to step down unit at [facility] for infectious disease transfer. Review of Systems Review of Systems: All systems reviewed & are unremarkable except as noted in HPI and below Exam Narrative: AF HR General: male in no acute respiratory distress who is nontoxic appearing, sitting up in his chair. HEENT: Normocephalic. Atraumatic. Extraocular movement intact. Sclera clear and anicteric. No facial asymmetry. Chest: Lungs are clear to auscultation bilaterally. No wheezes or crackles. CV: Heart was bradycardic with regular rhythm. S1/S2. No murmurs, gallops, or rubs. Abd: Abdomen was soft. Nontender. Nondistended. Positive bowel sounds. No organomegaly or masses. : Improved redness to the testes without tenderness. No edema. Ext: Right BKA. Left lower extremity with 1+ pitting edema and worsening redness extending from the dorsum of the foot to the mid henderson in pretibial region with increase pain. Amputation of left 3rd toe. Neuro: Patient is alert and oriented x4. Cranial nerves 2-12 are intact. Speech is clear. Objective Data Vital Signs Vital Signs: Vital Signs - 24 hr 01/24/24 07:55 01/24/24 09:05 01/24/24 08:00 Temperature 98.2 F Pulse Rate 54 L 56 L 55 L Respiratory Rate 16 Blood Pressure 133/54 L Pulse Oximetry 99 Oxygen Delivery 01/24/24 08:00 01/24/24 12:00 01/24/24 15:54 Temperature 97.9 F Pulse Rate 53 L 57 L Respiratory Rate 18 Blood Pressure 144/49 H Pulse Oximetry 97 Oxygen Delivery Room Air 01/24/24 16:00 01/24/24 20:00 01/24/24 20:00 Temperature Pulse Rate 53 L 56 L 53 L Respiratory Rate 18 Blood Pressure Pulse Oximetry 97 Oxygen Delivery Room Air 01/25/24 00:00 01/25/24 00:00 01/25/24 04:00 Temperature 98 F Pulse Rate 51 L 53 L 46 L Respiratory Rate 18 Blood Pressure 121/50 L Pulse Oximetry 97 Oxygen Delivery 01/25/24 06:00 Temperature 97.5 F L Pulse Rate 82 Respiratory Rate 18 Blood Pressure 134/60 Pulse Oximetry 100 Oxygen Delivery Intake/Output Intake/Output: Intake & Output 01/22/24 01/23/24 01/24/24 01/25/24 23:59 23:59 23:59 22:59 Intake Total 2410 1845 2180 275 Output Total 1250 2625 1150 925 Balance 1160 -780 1030 -650 Meds/Results Medications: Active Medications Generic Name Dose Route Start Last Admin Trade Name Freq PRN Reason Stop Dose Admin Amlodipine Besylate 5 mg 01/21/24 09:00 01/24/24 09:07 Amlodipine Besylate 5 Mg Tablet PO 5 mg DAILY JUDY Administration Aspirin 81 mg 01/21/24 09:00 01/24/24 09:07 Aspirin 81 Mg Enteric Tablet PO 81 mg DAILY JUDY Administration Atorvastatin Calcium 20 mg 01/21/24 09:00 01/24/24 09:07 Atorvastatin 20 Mg Tablet PO 20 mg DAILY JUDY Administration Dextrose 12.5 gm 01/20/24 22:24 Dextrose 50% 25 Gm/50 Ml Syringe IV PUSH PRN PRN Hypoglycemia Protocol Enoxaparin Sodium 40 mg 01/25/24 09:00 Enoxaparin 40 Mg/0.4 Ml Syringe SUB-Q DAILY UJDY Ferrous Sulfate 325 mg 01/21/24 09:00 01/24/24 16:58 Ferrous Sulfate [address] BY MOUTH 325 mg BID JUDY Administration Glucagon 1 mg 01/20/24 22:24 Glucagon For Inj 1 Mg Vial IM PRN PRN Hypoglycemia Protocol Glucose 15 gm 01/20/24 22:24 Glucose Oral Gel 15 Gm Of Glucse In 37.5 Gm Tube PO PRN PRN Hypoglycemia Protocol Hydralazine HCl 100 mg 01/21/24 09:00 01/24/24 09:06 Hydralazine Hcl 50 Mg Tablet PO 100 mg DAILY JUDY Administration Dextrose 1,000 mls @ 100 mls/hr 01/20/24 22:24 Dextrose 5% 1,000 Ml IVPB PRN PRN Hypoglycemia Protocol Cefepime HCl 1 gm in 50 mls @ 100 mls/hr 01/23/24 13:00 01/24/24 21:44 Maxipime 1 Gm/Ns 50 Ml IVPB Infused Q12HR JUDY Infusion Insulin Aspart 2 - 5 units 01/21/24 08:00 01/24/24 16:54 Insulin Aspart (*Bkc) 100 Units/Ml SUB-Q Not Given TIDWM JUDY Protocol Insulin Aspart 1 - 2 units 01/21/24 21:00 01/24/24 21:14 Insulin Aspart (*Bkc) 100 Units/Ml SUB-Q Not Given HS JUDY Protocol Linezolid 600 mg 01/23/24 21:00 01/24/24 21:14 Linezolid 600 Mg Tablet PO 600 mg Q12HR JUDY Administration Miconazole Nitrate 1 applic 01/20/24 21:00 01/24/24 21:16 Miconazole Nitrate 2% Cream 30 Gm Tube TOPICAL 1 applic Q12HR JUDY Administration Multivitamins/Minerals 1 tablet 01/21/24 09:00 01/24/24 09:05 Opti-Gen Tab PO 1 tablet DAILY JUDY Administration Nebivolol 20 mg 01/21/24 09:00 01/24/24 09:05 Nebivolol Hcl 5 Mg Tablet PO 20 mg DAILY JUDY Administration Vitamin D 2,000 units 01/21/24 09:00 01/24/24 09:07 Cholecalciferol 1,000 Units Tablet PO 2,000 units DAILY JUDY Administration Radiology Results: ITS Impressions Ankle X-Ray 01/20/24 14:29 IMPRESSION: 1. Mild midfoot osteoarthritis. Foot X-Ray 01/20/24 14:29 IMPRESSION: 1. Mild polyarticular osteoarthritis. Venous Doppler Study 01/20/24 17:19 IMPRESSION: 1. No deep venous thrombosis in the left lower limb. Scrotum Ultrasound 01/20/24 17:21 IMPRESSION: 1. Diffuse scrotal edema and moderate-sized right and minimal left hydroceles. Normal testes and epididymides. Pelvis CT 01/20/24 18:18 IMPRESSION: Marked scrotal edema. Diffuse left lower extremity subcutaneous stranding and fluid, most pronounced over the lateral thigh, lateral lower leg, and dorsum of the foot, may represent edema or cellulitis. Labs Labs: Laboratory Results - last 24 hr 01/24/24 01/24/24 01/24/24 07:58 12:04 16:38 WBC RBC Hgb Hct MCV MCH MCHC RDW Plt Count MPV Immature Gran % (Auto) Neut % (Auto) Lymph % (Auto) [place] % (Auto) Eos % (Auto) Baso % (Auto) Lymph # (Auto) [place] # (Auto) Eos # (Auto) Baso # (Auto) Abs Immat Gran (auto) Absolute Neuts (auto) Absolute Nucleated RBC Nucleated RBC % Sodium Potassium Chloride Carbon Dioxide Anion Gap BUN Creatinine Estim Creat Clear Calc Estimated GFR Glucose POC Capillary Glucose 135 H 152 H 125 H Calcium Total Bilirubin AST ALT Alkaline Phosphatase Total Protein Albumin 01/24/24 01/25/24 19:55 05:27 WBC 18.9 H RBC 3.14 L Hgb 9.1 L Hct 29.3 L MCV 93.3 MCH 29.0 MCHC 31.1 L RDW 15.0 H Plt Count 274 MPV 9.0 Immature Gran % (Auto) 1.2 H Neut % (Auto) 88.7 H Lymph % (Auto) 3.8 L [place] % (Auto) 6.0 Eos % (Auto) 0.0 Baso % (Auto) 0.3 Lymph # (Auto) 0.71 L [place] # (Auto) 1.1 H Eos # (Auto) 0.0 Baso # (Auto) 0.1 Abs Immat Gran (auto) 0.22 H Absolute Neuts (auto) 16.7 H Absolute Nucleated RBC 0.020 H Nucleated RBC % 0.1 Sodium 143 Potassium 3.6 Chloride 113 H Carbon Dioxide 18 L Anion Gap 12 BUN 52 H Creatinine 2.00 H Estim Creat Clear Calc 41 Estimated GFR 33 L Glucose 102 POC Capillary Glucose 139 H Calcium 9.0 Total Bilirubin 0.3 AST 45 ALT 33 Alkaline Phosphatase 193 H Total Protein 6.0 L Albumin 3.1 L Quality VTE Prophylaxis VTE prophylaxis: pharmacologic ordered
[2024-01-25 08:18] LABS: Glucose Point of Care 108 mg/dl (65-105)
[2024-01-25 08:45] LABS: Creatine Kinase 52 U/L (55-170)
[2024-01-25] MEDS: ENOXAPARIN 40 MG/0.4 ML SYRINGE SUB-Q (08:45)
[2024-01-25] MEDS: LINEZOLID 600 MG TABLET PO (08:45)
[2024-01-25] MEDS: OPTI-GEN TAB 1 TABLET PO (08:45)
[2024-01-25] MEDS: FERROUS SULFATE 325 MG TABLET DR BY MOUTH (08:46)
[2024-01-25] MEDS: amLODIPine BESYLATE 5 MG TABLET PO (08:46)
[2024-01-25] MEDS: CHOLECALCIFEROL 1,000 UNITS TABLET 2000 UNITS PO (08:46)
[2024-01-25] MEDS: ATORVASTATIN 20 MG TABLET PO (08:46)
[2024-01-25] MEDS: CEFEPIME 1 GM/NS 50 ML 1 GM/50 ML BAG IVPB (08:47)
[2024-01-25] MEDS: ASPIRIN 81 MG ENTERIC TABLET PO (08:47)
[2024-01-25] MEDS: hydrALAZINE HCL 50 MG TABLET 100 MG PO (08:47)
[2024-01-25] MEDS: MICONAZOLE NITRATE 2% CREAM 30 GM TUBE 1 APPLIC TOPICAL (08:57)
[2024-01-25 12:16] LABS: Glucose Point of Care 188 mg/dl (65-105)
--- NOTE | 2024-01-25 15:30 | PM.TDS ---
Transfer Discharge Sum: Prov Provider Date of admission: 01/21/24 11:05 Primary care physician: Kelsy Levine NP Admitting clinician: Olegario Morgan MD Attending physician on discharge: Olegario Morgan Discharging clinician: Katelyn Austin Anticipated date of transfer: 01/25/24 Receiving physician/facility: Hospitalist, Dr. Renee at [facility] in the step down unit DS: Admitting Diagnosis Discharge Date 01/25/24 Admitting Diagnosis Cellulitis of left leg cellulitis scrotum acute kidney injury superimposed on CKD anemia chronic disease diabetes mellitus elevated troponin DS: Discharge Diagnosis Discharge Diagnosis (1) Cellulitis of left leg without foot: Code(s): L03.116 - Cellulitis of left lower limb Status: Acute (2) Cellulitis, scrotum: Code(s): N49.2 - Inflammatory disorders of scrotum Status: Acute (3) Acute kidney injury superimposed on CKD: Code(s): N17.9 - Acute kidney failure, unspecified; N18.9 - Chronic kidney disease, unspecified Status: Acute (4) Anemia of chronic disease: Code(s): D63.8 - Anemia in other chronic diseases classified elsewhere Status: Acute (5) Diabetes: Qualifiers: Diabetes mellitus type: type 2 Diabetes mellitus fdc insulin use: without longitudinal float operator use Diabetes mellitus complication status: with kidney complications Diabetes mellitus complication detail: with chronic kidney disease Chronic kidney disease stage: stage 3 (moderate) Chronic kidney disease stage 3 subtype: stage 3a (GFR 45-59) Qualified Code(s): E11.22 - Type 2 diabetes mellitus with diabetic chronic kidney disease; N18.31 - Chronic kidney disease, stage 3a Code(s): E11.9 - Type 2 diabetes mellitus without complications Status: Acute (6) Elevated troponin: Code(s): R79.89 - Other specified abnormal findings of blood chemistry Status: Acute Transfer Discharge Sum: Med Medications Active and Home Medications: Home Medications aspirin 81 mg tablet,delayed release (Adult Aspirin Regimen) 81 mg PO DAILY 11/01/20 [History Confirmed 01/20/24] blood ketone glucose monitor 11/01/20 [History Confirmed 01/20/24] nebivolol 20 mg tablet 20 mg PO DAILY #90 tabs 12/24/22 [Rx Confirmed 01/20/24] cholecalciferol (vitamin D3) 50 mcg (2,000 unit) capsule 50 mcg PO DAILY 01/15/23 [History Confirmed 01/20/24] ferrous sulfate 325 mg (65 mg iron) tablet 325 mg PO BID 02/12/23 [History Confirmed 01/20/24] uxjovsol-pn-ntdmh 300 mcg-K 60 mcg-lycop 600 mcg-lutein 300 mcg tablet (Centrum Silver Men) 1 tablet PO DAILY 02/12/23 [History Confirmed 01/20/24] atorvastatin 20 mg tablet 20 mg PO DAILY #90 tabs 09/08/23 [Rx Confirmed 01/20/24] empagliflozin 10 mg tablet (Jardiance) 10 mg PO DAILY #90 tabs 10/15/23 [Rx Confirmed 01/20/24] furosemide 40 mg tablet 40 mg PO QAM #90 tabs 12/05/23 [Rx Confirmed 01/20/24] amlodipine 5 mg tablet 5 mg PO DAILY 01/20/24 [History Confirmed 01/20/24] hydralazine 100 mg tablet 100 mg PO DAILY 01/20/24 [History Confirmed 01/20/24] hydrochlorothiazide 25 mg tablet 25 mg PO DAILY 01/20/24 [History Confirmed 01/20/24] Transfer Discharge Sum: Hosp Hospital Course Hospital course: Amish Richter is a 73 year old male with a past medical history of 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 Patient was not meeting sepsis criteria on admission. He did have an QIAN on CKD which improved during his admission and has since returned to baseline. Ankle XR and foot XR showed mild midfoot OA. Lower extremity/ pelvis CT on 01/19 showed marked scrotal edema. Diffuse left lower extremity subcutaneous stranding and fluid, most pronounced over the lateral thigh, lateral lower leg, and dorsum of the foot, may represent edema or cellulitis. Blood cultures were drawn, show NGTD. Patient was started on vanc, cefe, flagyl at that time. He also had a scrotum US which did not indicate any localizing abscess or infection. Diffuse scrotal edema and moderate-sized right and minimal left hydroceles. Normal testes and epididymides. On the antibiotics he initially started to improve until 01/22 when his WBC started to uptrend again and his leg became increasingly erythematous with worsening pain. Spoke with ID pharm and he was transitioned to linezolid with an increase in cefepime. The WBC continued to rise and his symptoms showed no improvement. An KEISHA was obtained to rule out a possible underlying vascular cause and showed No significant arterial occlusive disease to the left lower limb with normal left KEISHA and TBI. A repeat CT was obtained, however this was not read by radiology prior to discussion with [facility] transfer team. The CT showed No significant interval change in soft tissue swelling with subcutaneous stranding most prominent along the lateral distal left thigh, calf and extending over the dorsum of the foot. No evident abscess or osteomyelitis. Nonspecific moderate-sized left knee joint effusion. Dystrophic calcifications along the left peroneus longus and brevis tendons suggesting possible crystalline deposition diseases such as gout. Given that patients infection was not improving and the hospital does not have infectious disease specialist, patient was discussed with hospitalist Dr. Florez at [facility] for transfer to a facility with ID. Patient was accepted at [facility] to step down unit by Dr. Florez. Dicussed transfer with patient and his family and they are in agreement. Prior to transfer patient denied chest pain, shortness of breath, nausea/vomiting and abdominal pain. All of the family and patients questions were answered at that time. Patient transferred in a stable condition to [facility] for infectious disease. Time Spent with Patient Time attestation: Total time spent providing and/or coordinating transfer services: Total time spent: Greater than 30 minutes Exam Narrative: AF HR 56 RR 16 Spo2 98 BP 126/47 General: male in no acute respiratory distress who is nontoxic appearing, sitting up in his chair. HEENT: Normocephalic. Atraumatic. Extraocular movement intact. Sclera clear and anicteric. No facial asymmetry. Chest: Lungs are clear to auscultation bilaterally. No wheezes or crackles. CV: Heart was bradycardic with regular rhythm. S1/S2. No murmurs, gallops, or rubs. Abd: Abdomen was soft. Nontender. Nondistended. Positive bowel sounds. No organomegaly or masses. : minimal redness to the testes without tenderness. No edema. Ext: Right BKA. Left lower extremity with 1+ pitting edema and worsening redness extending from the dorsum of the foot to the mid henderson in pretibial region with increase pain. Amputation of left 3rd toe. Neuro: Patient is alert and oriented x4. Cranial nerves 2-12 are intact. Speech is clear. DS: Data Data Completed and Pending Completed studies during hospitalization: lower extremity CT ankle brachial index pelvis CT lower extremity CT scrotal ultrasound venous Doppler foot x-ray ankle x-ray Labs on day of discharge: Labs from last 24 hours 01/25/24 01/25/24 01/25/24 11:58 08:06 05:27 WBC 18.9 H RBC 3.14 L Hgb 9.1 L Hct 29.3 L MCV 93.3 MCH 29.0 MCHC 31.1 L RDW 15.0 H Plt Count 274 MPV 9.0 Immature Gran % (Auto) 1.2 H Neut % (Auto) 88.7 H Lymph % (Auto) 3.8 L [place] % (Auto) 6.0 Eos % (Auto) 0.0 Baso % (Auto) 0.3 Lymph # (Auto) 0.71 L [place] # (Auto) 1.1 H Eos # (Auto) 0.0 Baso # (Auto) 0.1 Abs Immat Gran (auto) 0.22 H Absolute Neuts (auto) 16.7 H Absolute Nucleated RBC 0.020 H Nucleated RBC % 0.1 Sodium 143 Potassium 3.6 Chloride 113 H Carbon Dioxide 18 L Anion Gap 12 BUN 52 H Creatinine 2.00 H Estim Creat Clear Calc 41 Estimated GFR 33 L Glucose 102 POC Capillary Glucose 188 H 108 H Calcium 9.0 Total Bilirubin 0.3 AST 45 ALT 33 Alkaline Phosphatase 193 H Total Creatine Kinase 52 L Total Protein 6.0 L Albumin 3.1 L 01/24/24 01/24/24 19:55 16:38 WBC RBC Hgb Hct MCV MCH MCHC RDW Plt Count MPV Immature Gran % (Auto) Neut % (Auto) Lymph % (Auto) [place] % (Auto) Eos % (Auto) Baso % (Auto) Lymph # (Auto) [place] # (Auto) Eos # (Auto) Baso # (Auto) Abs Immat Gran (auto) Absolute Neuts (auto) Absolute Nucleated RBC Nucleated RBC % Sodium Potassium Chloride Carbon Dioxide Anion Gap BUN Creatinine Estim Creat Clear Calc Estimated GFR Glucose POC Capillary Glucose 139 H 125 H Calcium Total Bilirubin AST ALT Alkaline Phosphatase Total Creatine Kinase Total Protein Albumin Preliminary micro results at discharge 01/20/24 14:04 Blood Culture - Preliminary Blood 01/20/24 14:04 Blood Culture - Preliminary Blood
== END 2024-01-25 15:15 | disposition short-term general hospital (02) | DRG 603 ==
LOC: ANHED 17:11 → ANHIMU 20:32 → ANH2MED 01-24 11:23
PROVIDERS: Emergency Medicine; Internal Medicine; Registered Nurse; Admitting Provider Internal Medicine; Emergency Provider Physician Assistant; PCP Nurse Practitioner; Visit Provider Student in an Organized Health Care Education/Training Program
DX: L03.116 Cellulitis of left lower limb (principal); N17.9 Acute kidney failure, unspecified; I12.9 Hypertensive chronic kidney disease with stage 1 through stage 4 chronic kidney disease, or unspecified chronic kidney disease; M19.072 Primary osteoarthritis, left ankle and foot; D63.1 Anemia in chronic kidney disease; E78.5 Hyperlipidemia, unspecified; E87.6 Hypokalemia; E11.42 Type 2 diabetes mellitus with diabetic polyneuropathy; E11.22 Type 2 diabetes mellitus with diabetic chronic kidney disease; N18.31 Chronic kidney disease, stage 3a; N49.2 Inflammatory disorders of scrotum; Z89.511 Acquired absence of right leg below knee; Z86.718 Personal history of other venous thrombosis and embolism; Z90.49 Acquired absence of other specified parts of digestive tract; Z79.82 Long term (current) use of aspirin; Z88.0 Allergy status to penicillin; Z89.422 Acquired absence of other left toe(s); Z98.42 Cataract extraction status, left eye; Z96.1 Presence of intraocular lens; Z79.84 Long term (current) use of oral hypoglycemic drugs
CPT/HCPCS: 36415; 72192; 73610; 73630; 73700; 76870; 80048; 80053; 80202; 81001; 82550; 82607; 82746; 82948; 83036; 83540; 83550; 83605; 83735; 84145; 84484; 85025; 85610; 85652; 85730; 86140; 87040; 93005; 93922; 93971; 93976; 96361; 96365; 96366; 96367; 96372; 97110; 97116; 97161; 97166; 97530; 97535; 99285; A9270; G0378; J0692; J1650; J1756; J1836; J2270; J3370; J7030; J7040; J7050

== ENCOUNTER 2024-11-18 13:39 | Outpatient (CLI) | payer MEDICARE, BC, SELFPAY ==
--- NOTE | ~2024-11-18 | XR_ITS ---
EXAM/ PROCEDURE: XR finger 3rd RT min 2V - 11/18/2024 13:55 CDT HISTORY: 73 years old Male with Pain in unspecified finger(s) and swelling for 2 weeks COMPARISON: None available TECHNIQUE: Three view(s) FINDINGS/ IMPRESSION: There are no fractures or dislocations.Joint space narrowing, subchondral sclerosis, subchondral cyst formation and osteophyte formation, compatible with moderate osteoarthritis. Reviewed, dictated and finalized at location N.
== END 2024-11-18 13:40 | disposition home or self-care (01) ==
PROVIDERS: PCP Internal Medicine; Visit Provider Nurse Practitioner
DX: M79.646 Pain in unspecified finger(s) (principal)
CPT/HCPCS: 73140